=== PATIENT | female | born 1935 | race Caucasian/White ===

== ENCOUNTER 2023-12-30 10:57 | Inpatient (IN) ==
--- NOTE | 2023-12-30 11:34 | Emergency Department Note ---
Impression & Plan Cholecystitis, Right sided abdominal pain ED Provider Note Provider: Alvin Sow MD CHIEF COMPLAINT: Right flank pain, constipation HISTORY OF PRESENT ILLNESS: Patient is a 88-year-old female past medical history including hypertension presenting here today with daughter complaint of 4 months if not years she has had some right flank pain but over the last at least 2 months she developed worsening constipation issues. States she did not poop for the last week until yesterday. Had a very hard firm stool. Quite anxious and tearful. Reports that there is not been any blood but that she finally had to take some additional medications yesterday had some firm stool a small amount then some diarrhea. Denies nausea or vomiting. Has been trying to hydrate some with water. Not eating the best. Unfortunately she has been in a hotel for the last 6 months due to housing issues although they are scheduled to move back into the regular abode in several weeks. Has been thus subsisting off of mainly restaurant food and has not been eating as many salads or greens recently. Patient becomes quite anxious and when she has pain or discomfort prickly when trying to go to the bathroom she sometimes gets dizzy and hyperventilates according to daughter. No falls or syncope reported. Denies chest pain. No fevers reported. Denies urinary symptoms. No reported prior abdominal surgeries. PAST MEDICAL HISTORY: As noted above MEDICATIONS: Reviewed home medications SOCIAL HISTORY: Currently staying in a hotel with daughter until regular house is available in several weeks. PHYSICAL EXAM: GENERAL: alert and oriented on stretcher appears somewhat anxious and tearful at times. Head: normocephalic and atraumatic EYES: No injection, discharge or icterus. NECK: Trachea midline. ENT: Mucous membranes pink and moist. LUNGS: Airway patent. No retractions. Breath sounds clear HEART: Regular rate and rhythm. No chest wall tenderness ABDOMEN: Soft and non-tender, without guarding or rebound. No appreciable masses. No flank tenderness. SKIN: Acyanotic, warm, dry, without rashes EXTREMITIES: Without swelling, tenderness or deformity NEUROLOGICAL: No focal deficits. No aphasia. No facial droop or slurred speech. EK bpm. Sinus tachycardia with left intrafascicular block. No PVC or PAC. No acute ST segment elevation or depression with some T wave flattening. QTc 456. CONTINUOUS CARDIAC MONITORING: was ordered and showed a heart rate of 90s-110s bpm in sinus tachycardia to normal sinus rhythm Patient's laboratory studies and imaging reviewed. Differential includes Appendicitis, infections, diverticulitis, UTI, obstruction, mesenteric ischemia, aortic pathology, inflammatory bowel disease, renal colic, PUD, pancreatitis, biliary pathology, hernia, volvulus, constipation, as well as other pathologies. IMPRESSION/MEDICAL DECISION MAKING: Patient anxious with constipation issues and chronic right flank/abdominal pain. Nontender on exam without mass. No syncope or trauma. Seems to have discomfort when trying to have bowel movements and sometimes hyperventilates and becomes dizzy but no again syncope. Patient is tearful at times during interview. Provided reassurance. Basic blood work obtained. No chest pain or shortness of breath reported. Doubt cardiac or pulmonary etiology. Will obtain abdominal CT given her complaints to ensure no other occult abnormality such as mass, obstruction, volvulus, colitis, appendicitis, or pancreatitis are present. Do question if this is simple constipation exacerbated by change in diet due to subsisting off of restaurant food and possibly not the best hydration. Patient with CLL and white blood cell count of ~66,000 today stable compared to previous. Normal hemoglobin and platelet count. Chemistries without severe abnormality and normal renal function. Bilirubin, ALT, AST normal with alkaline phosphatase just above normal at 105. Normal lipase. Doubt hepatitis or pancreatitis. Normal troponin. Negative urinalysis without findings of blood or infection. CT abdomen pelvis with a significantly distended gallbladder with thickening and infiltration concerning for severe cholecystitis with less likelihood that could represent underlying neoplastic development. Possibly lymphadenopathy and mild dilation of the intrahepatic biliary ducts infectious versus neoplastic or reported. Discussed with general surgery team here. Patient afebrile and without leukocytosis and lower suspicion for sepsis at this time. Again no significant LFT abnormalities. Further discussion the patient states has been probably a month or 2 she has been having some right-sided abdominal pain. The general surgery team will evaluate the patient but recommend admission to medicine. Will empirically cover with antibiotics at this point given a dose of cefoxitin. Discussed with the hospitalist team. DIAGNOSIS: Cholecystitisright abdominal pain, constipation DISPOSITION: General surgery team and hospitalist will evaluate Past Med/Surg History Problem List (Updated 12/30/23 @ 14:49 by Mulu Butler PA-C) Hypothyroidism GERD (gastroesophageal reflux disease) HLD (hyperlipidemia) HTN (hypertension) Right sided abdominal pain (Acute) Cholecystitis (Acute) Medical History (Updated 12/30/23 @ 14:49 by Mulu Butler PA-C) History of right breast cancer Brain TIA Speech abnormality Surgical History (Updated 12/30/23 @ 14:49 by Mulu Butler PA-C) Hx of lumpectomy Hx of right mastectomy Social History Smoking Status: Never smoker Preferred Language: Telugu Feels Safe at Home: Yes Allergies Allergies Allergy/AdvReac Type Severity Reaction Status Date / Time meperidine [From Demerol] Allergy Unknown PER [facility] Verified 05/22/23 16:27 Penicillins Allergy Unknown HAPPENED A Verified 05/22/23 16:27 LONG TIME AGO--CAN'T REMEMBER Tetracyclines Allergy Unknown PER [facility] Verified 05/22/23 16:27 Home Meds Home Medications Medication Instructions Recorded Confirmed cholecalciferol (vitamin D3) 50 25 mcg PO DAILY 12/08/22 12/30/23 mcg (2,000 unit) capsule (Vitamin D3) glucosamine sulfate 500 mg tablet 500 mg PO BID 12/08/22 12/30/23 (Glucosamine) hydrochlorothiazide 12.5 mg capsule 12.5 mg PO QAM 12/08/22 12/30/23 loratadine 10 mg tablet (Claritin) 10 mg PO DAILY 12/08/22 12/30/23 losartan 25 mg tablet 25 mg PO QAM 12/08/22 12/30/23 pantoprazole 40 mg tablet,delayed 40 mg PO QAM 12/08/22 12/30/23 release psyllium husk 3.4 gram/5.4 gram 1 tbsp PO DAILY 12/08/22 12/30/23 oral powder (Metamucil) simvastatin 20 mg tablet 20 mg PO QAM 12/08/22 12/30/23 vitamin E 268 mg (400 unit) capsule 268 mg PO DAILY 12/08/22 12/30/23 montelukast 10 mg tablet 10 mg PO QAM 05/22/23 12/30/23 cetirizine 10 mg capsule 10 mg PO DAILY 12/30/23 12/30/23 clopidogrel 75 mg tablet 75 mg PO DAILY 12/30/23 12/30/23 diclofenac sodium 1 % topical gel 2 g topical BID 12/30/23 12/30/23 hydrocodone 5 mg-acetaminophen 325 1 tab PO Q6H PRN Pain (Scale Score 12/30/23 12/30/23 mg tablet 4-6) levothyroxine 75 mcg tablet 75 mcg PO DAILY 12/30/23 12/30/23 turmeric root extract 500 mg 500 mg PO DAILY 12/30/23 12/30/23 capsule Results & Data (ED) Vital Signs Vital Signs - 24 hr 12/30/23 11:07 12/30/23 11:37 12/30/23 13:00 Temperature 36.4 C L Temperature Source Temporal Artery Scan Pulse Rate 116 H Pulse Rate [Right Brachial] 96 H Pulse Rhythm Regular Pulse Rhythm [Right Brachial] Regular Pulse Strength Normal Pulse Strength [Right Brachial] Normal Respiratory Rate 22 18 Respiratory Effort / Characteristics Non-Labored Spontaneous Non-Labored Respiratory Depth Normal Normal Respiratory Pattern Regular Regular Blood Pressure 117/83 Blood Pressure [Right Arm] 135/83 Blood Pressure Mean 94 Blood Pressure Mean [Right Arm] 100 Blood Pressure Position Sitting Blood Pressure Position [Right Arm] Lying Pulse Oximetry 96 95 96 Oxygen Delivery Method Room Air Room Air Room Air Sepsis Recent Fever Within 48 Hours No Sepsis New/Unexplained Change in Mental Status No Sepsis Action Taken by Nursing No Action Required 12/30/23 13:29 Temperature Temperature Source Pulse Rate 94 H Pulse Rate [Right Brachial] Pulse Rhythm Pulse Rhythm [Right Brachial] Pulse Strength Pulse Strength [Right Brachial] Respiratory Rate Respiratory Effort / Characteristics Respiratory Depth Respiratory Pattern Blood Pressure Blood Pressure [Right Arm] Blood Pressure Mean Blood Pressure Mean [Right Arm] Blood Pressure Position Blood Pressure Position [Right Arm] Pulse Oximetry Oxygen Delivery Method Sepsis Recent Fever Within 48 Hours Sepsis New/Unexplained Change in Mental Status Sepsis Action Taken by Nursing Laboratory Data 12/30/23 11:25 12/30/23 11:25 Lab Results 12/30/23 12/30/23 Range/Units 11:25 12:31 WBC 66.46 H* (4.8-10.8) K/ul RBC 5.36 (4.20-5.40) M/uL Hgb 13.3 (12.0-16.0) g/dl Hct 41.4 (37.0-47.0) % MCV 77.2 L (80.0-100.0) fL MCH 24.8 L (25.0-34.0) pg MCHC 32.1 (32.0-36.0) g/dL RDW Std Deviation 44.1 (36.4-46.3) fL RDW Coeff of Dre 15.9 H (11.5-14.5) % Plt Count 287 (130-400) K/uL MPV 10.9 (9.4-12.4) fL Immature Gran % (Auto) 0.7 % Neut % (Auto) 18.8 % Lymph % (Auto) 77.4 % [place] % (Auto) 2.7 % Eos % (Auto) 0.2 % Baso % (Auto) 0.2 % Neut # (Auto) 12.53 H (1.40-6.50) K/uL Lymph # (Auto) 51.45 H (1.20-3.40) K/uL [place] # (Auto) 1.79 H (0.11-0.59) K/uL Eos # (Auto) 0.11 (0.00-0.50) K/uL Baso # (Auto) 0.10 (0.00-0.20) K/uL Immature Gran # (Auto) 0.48 H (0.01-0.20) K/uL Polychromasia 1+ PT 10.8 (9.0-12.0) Seconds INR 1.0 (0.9-1.1) Sodium 135 L (136-145) mmol/L Potassium 3.9 (3.5-5.1) mmol/L Chloride 103 (98-107) mmol/L Carbon Dioxide 20 L (21-32) mmol/L Anion Gap 12 H (3-11) BUN 19 (6-23) mg/dl Creatinine 0.84 (0.6-1.2) mg/dl Est Cr Clr Drug Dosing 48.8 ml/min eGFR 66.80 BUN/Creatinine Ratio 22.6 H (10-20) Glucose 164 H (70-99(Fasting)) mg/dl Calcium 9.2 (8.6-10.3) mg/dl Total Bilirubin 0.8 (0.2-1.0) mg/dl AST 22 (13-39) U/L ALT 18 (7-52) U/L Alkaline Phosphatase 105 H (34-104) U/L Troponin I High Sens 4.4 (0-14) pg/ml Total Protein 8.0 (6.0-8.3) gm/dl Albumin 4.1 (3.4-5.0) gm/dl Globulin 3.9 (2.5-4.0) gm/dl Albumin/Globulin Ratio 1.1 (0.9-2) Lipase 18 (11-82) U/L Urine Color Yellow Urine Appearance Clear (Clear) Urine pH 5.5 (4.5-7.5) Ur Specific [place] 1.013 (1.000-1.030) Urine Protein Negative (Negative) Urine Glucose (UA) Negative (Negative) Urine Ketones Trace H (Negative) Urine Blood Negative (Negative) Urine Nitrite Negative (Negative) Urine Bilirubin Negative (Negative) Urine Urobilinogen Negative (Negative) Ur Leukocyte Esterase Negative (Negative) Administered Medications Discontinued Medications Sodium Chloride (Nss) 500 mls @ 999 mls/hr IV .Q31M ONE Stop: 12/30/23 12:02 Last Infusion: 12/30/23 12:35 Dose: Infused Documented By: Admin: 12/30/23 11:53 Dose: 999 mls/hr Documented By: MICA Cefoxitin Sodium (Mefoxin) 2,000 mg in 60 mls @ 100 mls/hr IV NOW STA Stop: 12/30/23 14:43 Last Infusion: 12/30/23 15:42 Dose: Infused Documented By: Admin: 12/30/23 15:05 Dose: 100 mls/hr Documented By: YOVANI Ioversol (Optiray 320 100ml) 94 ml IV ONCE ONE Stop: 12/30/23 12:14 Last Admin: 12/30/23 12:13 Dose: 94 ml Documented By: FRANK Imaging Data Radiologist's Impression: Abdomen/Pelvis CT 12/30/23 11:19 CT OF THE ABDOMEN AND PELVIS WITH CONTRAST CLINICAL HISTORY: Right flank pain. COMPARISON STUDY: None. TECHNIQUE: Following IV administration of 94 mL of Optiray, axial images of the abdomen and pelvis were obtained from the lung bases to the proximal femurs. Images were reviewed in the axial, sagittal, and coronal planes. IV contrast was administered without complication. Automated exposure control was utilized for the study. A dose lowering technique was utilized adhering to the principles of ALARA. CT DOSE: 1138.02 mGy.cm FINDINGS: No pneumatosis, free air or portal venous gas is present. The heart is enlarged. There is slight dilatation of intrahepatic bile ducts. There is prominent wall enhancement of the central bile ducts. There is apparent mass effect upon the proximal common bile duct at the level of the pascale hepatis. There are mildly enlarged pascale hepatis lymph nodes which appear hypodense. Index node on image 111 measures 2.6 x 1.6 cm. The gallbladder is mildly distended with irregular gallbladder wall thickening with moderate pericholecystic infiltration. There is subtle hypodensity within the adjacent portion of the liver. There is no pancreatic ductal dilatation. Spleen is mildly enlarged. The adrenal glands and kidneys are unremarkable. There is no hydronephrosis. There is no evidence for a bowel obstruction. Extensive sigmoid diverticulosis is present. There is no evidence for acute diverticulitis. Prominence of the posterior aspect of the uterine fundus is noted. This could be due to a fibroid. A small umbilical hernia contains a small amount of fluid and a few nodular densities. IMPRESSION: 1. Distended gallbladder with gallbladder wall thickening and pericholecystic infiltration. The findings represent moderate to severe acute cholecystitis. Given gallbladder wall irregularity, developing gangrenous cholecystitis cannot be excluded. Subtle hypointensity within the adjacent liver. This probably reflects edema in the setting of cholecystitis. However, an underlying neoplastic etiology is also within the differential. 2. Mild dilatation of the intrahepatic bile ducts with mass effect upon the common bile duct within the pascale hepatis, possibly due to lymphadenopathy. Prominent wall enhancement of the central bile ducts. Again, the findings could be infectious and related to cholecystitis or represent cholangitis. However, a neoplastic etiology cannot be excluded. The lymphadenopathy is likely reactive although could be neoplastic. 3. Extensive colonic diverticulosis. No evidence for acute diverticulitis. ACT 112: Negative or not required by law. Electronically signed by: Alex Nails M.D. 12/30/2023 1:22 PM Liver Ultrasound 12/30/23 14:01 US liver CLINICAL HISTORY: Cholecystitis. COMPARISON STUDY: CT of the abdomen and pelvis performed earlier today. FINDINGS: No hepatic lesions are identified. There is slight prominence of intrahepatic bile ducts. The caliber of the common bile duct is normal, measuring 5 mm. Numerous gallstones within the gallbladder are present. The gallbladder is distended. There is moderate gallbladder wall thickening. No sonographic Ruiz sign was reported. The pancreatic body is normal. Head and tail are obscured. There are several mildly enlarged pascale hepatis/peripancreatic lymph nodes that measure up to 2.9 x 2.5 x 1.1 cm. There is no right hydronephrosis. IMPRESSION: 1. Distended gallbladder which contains numerous stones. Moderate gallbladder wall thickening and trace pericholecystic fluid. No sonographic Ruiz sign. When correlating with CT, the findings suggest acute cholecystitis. 2. Slight prominence of intrahepatic bile ducts. Normal caliber common bile duct. 3. Mildly enlarged pascale hepatis/peripancreatic lymph nodes. These are likely reactive although a neoplastic etiology could appear similar. ACT 112: Negative or not required by law. Electronically signed by: Alex Nails M.D. 12/30/2023 2:47 PM Discharge Plan Visit Data Chief Complaint: Abdominal Pain Stated Complaint: SEVERE PAIN R FLANK FOR MORE THAN A WEEK ED Provider: Alvin Sow Discharge Problem: Cholecystitis, Right sided abdominal pain Patient Disposition: Being Evaluated by Surgeon
[2023-12-30 11:45] LABS: Hematocrit (blood only) 41.4 % (37.0-47.0); Hemoglobin 13.3 g/dl (12.0-16.0); Mean Corpuscular Hemoglobin 24.8 pg (25.0-34.0); Mean Corpuscular Hgb Conc 32.1 g/dL (32.0-36.0); Mean Corpuscular Volume 77.2 fL (80.0-100.0); Mean Platelet Volume 10.9 fL (9.4-12.4); Platelet Count 287 K/uL (130-400); RDW Coefficient of Variation 15.9 % (11.5-14.5); RDW Standard Deviation 44.1 fL (36.4-46.3); Red Blood Count 5.36 M/uL (4.20-5.40); White Blood Count 66.46 K/ul (4.8-10.8)
[2023-12-30] MEDS: SODIUM CHLORIDE 0.9% 500 ML IV ONE (11:53)
[2023-12-30 11:57] LABS: Albumin Globulin Ratio 1.1 (0.9-2); Albumin Level 4.1 gm/dl (3.4-5.0); BUN Creatinine Ratio 22.6 (10-20); Bilirubin,Total 0.8 mg/dl (0.2-1.0); Calcium 9.2 mg/dl (8.6-10.3); Creatinine Clr Calc Pharmacy 48.8 ml/min; Globulin 3.9 gm/dl (2.5-4.0); Potassium 3.9 mmol/L (3.5-5.1)
[2023-12-30 12:04] LABS: Troponin I High Sensitivity 4.4 pg/ml (0-14)
[2023-12-30 12:07] LABS: Prothrombin Time 10.8 Seconds (9.0-12.0)
[2023-12-30] MEDS: OPTIRAY 320 100ml IV ONE (12:13)
[2023-12-30 12:16] LABS: Basophils % (auto) 0.2 %; Eosinophils # (auto) 0.11 K/uL (0.00-0.50); Eosinophils % (auto) 0.2 %; Immature Granulocytes # (auto) 0.48 K/uL (0.01-0.20); Immature Granulocytes % (auto) 0.7 %; Lymphocytes # (auto) 51.45 K/uL (1.20-3.40); Lymphocytes % (auto) 77.4 %; Monocytes # (auto) 1.79 K/uL (0.11-0.59); Monocytes % (auto) 2.7 %; Neutrophils # (auto) 12.53 K/uL (1.40-6.50); Neutrophils % (auto) 18.8 %; Polychromasia 1+
[2023-12-30 12:43] LABS: Appearance Urine Clear (Clear); Bilirubin Urine Negative (Negative); Blood Urine Negative (Negative); Color Urine Yellow; Glucose Urine UA Negative (Negative); Ketones Urine Trace (Negative); Leukocyte Esterase Urine Negative (Negative); Nitrite Urine Negative (Negative); Protein Urine Negative (Negative); Specific Gravity Urine 1.013 (1.000-1.030); Urobilinogen Urine Negative (Negative); pH Urine 5.5 (4.5-7.5)
--- NOTE | 2023-12-30 13:24 | CT Scan Report ---
CT OF THE ABDOMEN AND PELVIS WITH CONTRAST CLINICAL HISTORY: Right flank pain. COMPARISON STUDY: None. TECHNIQUE: Following IV administration of 94 mL of Optiray, axial images of the abdomen and pelvis we re obtained from the lung bases to the proximal femurs. Images were reviewed in the axial, sagittal, and coronal planes. IV contrast was administered without complication. Automated exposure control wa s utilized for the study. A dose lowering technique was utilized adhering to the principles of ALARA . CT DOSE: 1138.02 mGy.cm FINDINGS: No pneumatosis, free air or portal venous gas is present. The heart is enlarged. There is s light dilatation of intrahepatic bile ducts. There is prominent wall enhancement of the central bile ducts. There is apparent mass effect upon the proximal common bile duct at the level of the pascale he patis. There are mildly enlarged pascale hepatis lymph nodes which appear hypodense. Index node on imag e 111 measures 2.6 x 1.6 cm. The gallbladder is mildly distended with irregular gallbladder wall thic kening with moderate pericholecystic infiltration. There is subtle hypodensity within the adjacent po rtion of the liver. There is no pancreatic ductal dilatation. Spleen is mildly enlarged. The adrenal glands and kidneys are unremarkable. There is no hydronephrosis. There is no evidence for a bowel obs truction. Extensive sigmoid diverticulosis is present. There is no evidence for acute diverticulitis. Prominence of the posterior aspect of the uterine fundus is noted. This could be due to a fibroid. A small umbilical hernia contains a small amount of fluid and a few nodular densities. IMPRESSION: 1. Distended gallbladder with gallbladder wall thickening and pericholecystic infiltration. The findi ngs represent moderate to severe acute cholecystitis. Given gallbladder wall irregularity, developing gangrenous cholecystitis cannot be excluded. Subtle hypointensity within the adjacent liver. This pr obably reflects edema in the setting of cholecystitis. However, an underlying neoplastic etiology is also within the differential. 2. Mild dilatation of the intrahepatic bile ducts with mass effect upon the common bile duct within t he pascale hepatis, possibly due to lymphadenopathy. Prominent wall enhancement of the central bile lucia ts. Again, the findings could be infectious and related to cholecystitis or represent cholangitis. Ho wever, a neoplastic etiology cannot be excluded. The lymphadenopathy is likely reactive although coul d be neoplastic. 3. Extensive colonic diverticulosis. No evidence for acute diverticulitis. ACT 112: Negative or not required by law. Electronically signed by: Alex Nails M.D. 12/30/2023 1:22 PM
--- NOTE | 2023-12-30 14:04 | History & Physical Report ---
Date of Service December 30, 2023 Assessment & Plan (1) Cholecystitis: (2) HTN (hypertension): (3) HLD (hyperlipidemia): (4) GERD (gastroesophageal reflux disease): (5) Hypothyroidism: (6) History of right breast cancer: Plan Acute cholecystitis R flank Pain Constipation - Admit to med surg with tele - Surgery consulted for possible cholecystectomy- no plans for surgical intervention today. May require cholecystectomy vs percutaneous maria g tube. Surgery initially requested GI consultation but now plans for MRCP instead. Will hold plavix, last dose was this morning. Continue NPO for now incase plans for surgery tomorrow. Cont IV fluids for now. - Started on cefoxitin IV in the ER, will continue - RUQ US reviewed showing distended gallbladder which contains multiple gallbladder stones. Moderate gallbladder wall thickening and trace per icholecystic fluid. - LFTs are stable, follow with am labs History of B cell CLL Right breast cancer - Follows with heme-onc as outpatient routinely, Dr. 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 Recurrence of R breast cancer in 2010, now s/p R mastectomy, completed 5 years of anastrozole in 2016 - WBC baseline ~ 60 K as per outpatient epic review from May 2023, today WBC 66 K, monitor Hypothyroidism -TSH 4.53 on 12/26 -Continue levothyroxine Hx of TIA - Pt follows with neuro , Dr. Fountain, currently on plavix - Holding as above d/t possible surgery, resume as able. HTN HLD - Chronic, stable, Cont home meds: losartan 25 mg daily, HCTZ 12.5 mg daily, simvastatin 20 mg daily Spinal stenosis Ambulatory dysfunction - PT/OT consults DVT ppx: teds, scds Lines: PIV x 2 FEN/GI: N.p.o. CODE: Full code Dispo: From home, likely to remain in the hospital x 1-2 days A total of 77 minutes were spent with greater than 50% of that time face to face with the patient, personally reviewing all current laboratories, imaging studies, past medication reconciliation, outpatient chart review, and discussion with specialists to collaborate care for the patient with attending. Please see attending documentation for corrections and/or additions. History of Present Illness Chief Complaint: R flank Pain Primary Care Provider: Triston Bragg MD This is a 88-year-old female with PMHx of CLL, history of right breast cancer, hypothyroidism, HTN, HLD, GERD, spinal stenosis, ambulatory dysfunction and anxiety who presents to the hospital with onset of right-sided flank pain on and off over the past 1 to 2 months. She complains of recent constipation and that is why she initially presented. Patient has been out of her house and living in a hotel for the past few months, not eating normal types of food, and came into the ER with worsening abdominal/right-sided flank pain. Last time she ate was coffee and small muffin this morning around 8 AM. Pt denies fever, chills, worsening abdominal pain, distension, admits to burping often. She has pain in the RUQ with pressure but does not bother her while is just sitting in bed. Her daughter is with her at bedside and supports the history. CT abdomen pelvis is reviewed showing a distended gallbladder with gallbladder wall thickening and pericholecystic infiltration. Representing moderate to severe acute cholecystitis. Given gallbladder wall irregularity, developing gangrenous cholecystitis cannot be excluded. Subtle hypointensity within the adjacent liver, probably reflecting edema, however underlying neoplastic etiology is also within the deaf. Mild dilation of intrahepatic bile duct with mass effect upon the CBD within the pascale hepatitis. Prominent wall enhancement of central bile ducts. Extensive colonic diverticulosis, no acute diverticulitis. WBC of 66.46 with a left shift with neutrophil count 1.53, her baseline WBC is around 60K with history of CLL. Allergies Allergy/AdvReac Type Severity Reaction Status Date / Time meperidine [From Demerol] Allergy Unknown PER [facility] Verified 05/22/23 16:27 Penicillins Allergy Unknown HAPPENED A Verified 05/22/23 16:27 LONG TIME AGO--CAN'T REMEMBER Tetracyclines Allergy Unknown PER [facility] Verified 05/22/23 16:27 Home Medications Medication Instructions Recorded Confirmed Type cholecalciferol (vitamin D3) 50 25 mcg PO DAILY 12/08/22 12/30/23 History mcg (2,000 unit) capsule (Vitamin D3) glucosamine sulfate 500 mg tablet 500 mg PO BID 12/08/22 12/30/23 History (Glucosamine) hydrochlorothiazide 12.5 mg capsule 12.5 mg PO QAM 12/08/22 12/30/23 History loratadine 10 mg tablet (Claritin) 10 mg PO DAILY 12/08/22 12/30/23 History losartan 25 mg tablet 25 mg PO QAM 12/08/22 12/30/23 History pantoprazole 40 mg tablet,delayed 40 mg PO QAM 12/08/22 12/30/23 History release psyllium husk 3.4 gram/5.4 gram 1 tbsp PO DAILY 12/08/22 12/30/23 History oral powder (Metamucil) simvastatin 20 mg tablet 20 mg PO QAM 12/08/22 12/30/23 History vitamin E 268 mg (400 unit) capsule 268 mg PO DAILY 12/08/22 12/30/23 History montelukast 10 mg tablet 10 mg PO QAM 05/22/23 12/30/23 History cetirizine 10 mg capsule 10 mg PO DAILY 12/30/23 12/30/23 History clopidogrel 75 mg tablet 75 mg PO DAILY 12/30/23 12/30/23 History diclofenac sodium 1 % topical gel 2 g topical BID 12/30/23 12/30/23 History hydrocodone 5 mg-acetaminophen 325 1 tab PO Q6H PRN Pain (Scale Score 12/30/23 12/30/23 History mg tablet 4-6) levothyroxine 75 mcg tablet 75 mcg PO DAILY 12/30/23 12/30/23 History turmeric root extract 500 mg 500 mg PO DAILY 12/30/23 12/30/23 History capsule Past Med/Surg History Problem List (Updated 12/30/23 @ 14:49 by Mulu Butler PA-C) Hypothyroidism GERD (gastroesophageal reflux disease) HLD (hyperlipidemia) HTN (hypertension) Right sided abdominal pain (Acute) Cholecystitis (Acute) Medical History (Updated 12/30/23 @ 14:49 by Mulu Butler PA-C) History of right breast cancer Brain TIA Speech abnormality Surgical History (Updated 12/30/23 @ 14:49 by Mulu Butler PA-C) Hx of lumpectomy Hx of right mastectomy Social History Smoking Status: Never smoker Preferred Language: Bangladeshi Feels Safe at Home: Yes Review of Systems Review of Systems: Constitutional: No fever, sweats or chills Eyes: No diplopia, no worsening or blurred vision ENT: normal hearing, no trouble swallowing Respiratory: No cough, sputum, dyspnea at rest or on exertion Cardiovascular: No chest pain, tightness or palpitations Abdomen: + RUQ pain, no nausea, vomiting, diarrhea, + as per HPI with constipation Musculoskeletal: No joint pain, calf pain, swelling Neurologic: No weakness, numbness/tingling, or balance problems Psychiatric: No anxiety or depression Skin: No rash or itch Physical Exam Physical Exam: Please refer to physician addendum for PE. Results & Data Results & Data Vital Signs (Past 12 Hours) Vital Signs Temp Pulse Pulse Resp BP BP Pulse Ox 12/30/23 13:29 94 H 12/30/23 13:00 96 H 18 135/83 96 12/30/23 11:37 95 12/30/23 11:07 36.4 C L 116 H 22 117/83 96 O2 Del Method 12/30/23 13:29 12/30/23 13:00 Room Air 12/30/23 11:37 Room Air 12/30/23 11:07 Room Air Laboratory Results 12/30/23 12/30/23 12:31 11:25 WBC 66.46 H* RBC 5.36 Hgb 13.3 Hct 41.4 MCV 77.2 L MCH 24.8 L MCHC 32.1 RDW Std Deviation 44.1 RDW Coeff of Dre 15.9 H Plt Count 287 MPV 10.9 Immature Gran % (Auto) 0.7 Neut % (Auto) 18.8 Lymph % (Auto) 77.4 [place] % (Auto) 2.7 Eos % (Auto) 0.2 Baso % (Auto) 0.2 Neut # (Auto) 12.53 H Lymph # (Auto) 51.45 H Archule[place] # (Auto) 1.79 H Eos # (Auto) 0.11 Baso # (Auto) 0.10 Immature Gran # (Auto) 0.48 H Polychromasia 1+ PT 10.8 INR 1.0 Sodium 135 L Potassium 3.9 Chloride 103 Carbon Dioxide 20 L Anion Gap 12 H BUN 19 Creatinine 0.84 Est Cr Clr Drug Dosing 48.8 eGFR 66.80 BUN/Creatinine Ratio 22.6 H Glucose 164 H Calcium 9.2 Total Bilirubin 0.8 AST 22 ALT 18 Alkaline Phosphatase 105 H Troponin I High Sens 4.4 Total Protein 8.0 Albumin 4.1 Globulin 3.9 Albumin/Globulin Ratio 1.1 Lipase 18 Urine Color Yellow Urine Appearance Clear Urine pH 5.5 Ur Specific [place] 1.013 Urine Protein Negative Urine Glucose (UA) Negative Urine Ketones Trace H Urine Blood Negative Urine Nitrite Negative Urine Bilirubin Negative Urine Urobilinogen Negative Ur Leukocyte Esterase Negative Diagnostic Findings Abdomen/Pelvis CT 12/30/23 11:19 CT OF THE ABDOMEN AND PELVIS WITH CONTRAST CLINICAL HISTORY: Right flank pain. COMPARISON STUDY: None. TECHNIQUE: Following IV administration of 94 mL of Optiray, axial images of the abdomen and pelvis were obtained from the lung bases to the proximal femurs. Images were reviewed in the axial, sagittal, and coronal planes. IV contrast was administered without complication. Automated exposure control was utilized for the study. A dose lowering technique was utilized adhering to the principles of ALARA. CT DOSE: 1138.02 mGy.cm FINDINGS: No pneumatosis, free air or portal venous gas is present. The heart is enlarged. There is slight dilatation of intrahepatic bile ducts. There is prominent wall enhancement of the central bile ducts. There is apparent mass effect upon the proximal common bile duct at the level of the pascale hepatis. There are mildly enlarged pascale hepatis lymph nodes which appear hypodense. Index node on image 111 measures 2.6 x 1.6 cm. The gallbladder is mildly distended with irregular gallbladder wall thickening with moderate pericholecystic infiltration. There is subtle hypodensity within the adjacent portion of the liver. There is no pancreatic ductal dilatation. Spleen is mildly enlarged. The adrenal glands and kidneys are unremarkable. There is no hydronephrosis. There is no evidence for a bowel obstruction. Extensive sigmoid diverticulosis is present. There is no evidence for acute diverticulitis. Prominence of the posterior aspect of the uterine fundus is noted. This could be due to a fibroid. A small umbilical hernia contains a small amount of fluid and a few nodular densities. IMPRESSION: 1. Distended gallbladder with gallbladder wall thickening and pericholecystic infiltration. The findings represent moderate to severe acute cholecystitis. Given gallbladder wall irregularity, developing gangrenous cholecystitis cannot be excluded. Subtle hypointensity within the adjacent liver. This probably reflects edema in the setting of cholecystitis. However, an underlying neoplastic etiology is also within the differential. 2. Mild dilatation of the intrahepatic bile ducts with mass effect upon the common bile duct within the pascale hepatis, possibly due to lymphadenopathy. Prominent wall enhancement of the central bile ducts. Again, the findings could be infectious and related to cholecystitis or represent cholangitis. However, a neoplastic etiology cannot be excluded. The lymphadenopathy is likely reactive although could be neoplastic. 3. Extensive colonic diverticulosis. No evidence for acute diverticulitis. ACT 112: Negative or not required by law. Electronically signed by: Alex Nails M.D. 12/30/2023 1:22 PM Code Status & VTE Plan Code Status Full code - discussed with pt at bedside Supervising Physician Co-Signing Physician Notes 12/30/2023 the patient was seen and examined in emergency room in presence of the daughter She has been complaining of right-sided upper abdominal pain for few weeks Pain seems to be colicky in nature and sometimes is aggravated by food No nausea and/or vomiting and does not have any fever and no chills On examination Lying in bed without any acute distress Hemodynamically stable Chestclear to auscultate bilaterally HeartS1-S2, regular Abdomensoft, tender right upper quadrant with rebound tenderness and positive Ruiz sign Extremitiesno edema Her admission labs, EKG and imaging studies reviewed Has distended gallbladder with gallstone cholecystitis Also has stable CLL Started on intravenous cefoxitin and surgery has been consulted Will need GI evaluation as well Agree with assessment plan as outlined above by Mulu Butler PA-C and take the full responsibility of the care DR Bienvenido Houston
--- NOTE | 2023-12-30 14:14 | Surgery Consultation ---
Date of Consultation December 30, 2023 Assessment & Plan (1) Cholecystitis: Patient with c/o abdominal pain belching, and constipation. She reports her abdominal pain is RLQ. On exam she is resting in the litter, VSS, abdomen is non distended, TTP RUQ, soft. A CT scan was obtained and showing concerns for a D istended gallbladder with gallbladder wall thickening and pericholecystic infiltration. The findings represent moderate to severe acute cholecystitis with the possibility of developing gangrenous cholecystitis. Subtle hypointensity within the adjacent liver. This probably reflects edema in the setting of cholecystitis. However, an underlying neoplastic etiology is also within the differential. Mild dilatation of the intrahepatic bile ducts with mass effect upon the common bile duct within the pascale hepatis, possibly due to lymphadenopathy. Prominent wall enhancement of the central bile ducts. Again, the findings could be infectious and related to cholecystitis or represent cholangitis. However, a neoplastic etiology cannot be excluded. The lymphadenopathy is likely reactive although could be neoplastic. WBC 66 (has CLL), LFT non elevated Recommending admission to medicine Hold anticoagulation Consult GI for further recommendations on CT reading and mass effect on CBD, dilatation of intrahepatic bile ducts, IV Fluids for hydration, IV antiemetics and analgesics prn, IV antibiotics started in the ER ordered RUQ u/s discussed with patient and daughter the possibility of cholecystectomy vs perc maria g tube will await U/S results no plan for surgical intervention at this time. discussed pt with on-call surgeon Dr. Lewis Supervising Physician Co-Signing Physician Notes Patient and MRCP at time of my visit, had lengthy discussion with the daughter. Presented with nausea and abdominal pain, CT showed significant inflammation of the gallbladder along with some questionable inflammation of the bile ducts and some lymphadenopathy in the pascale hepatis. Ultrasound showed multiple gallstones and cholecystitis. The MRCP is pending. After review of the patient's chart, she has CLL and is on Plavix. Given her comorbidities, would hold off on surgical intervention. Recommend treating with antibiotics. If the MRCP is negative then she may have clear liquids tonight. Would plan for percutaneous cholecystostomy tube in the next few days. If unable to be performed then would consider transfer for [employer] stent. Surgery will follow. History of Present Illness Reason for Consultation: acute cholecystitis Requesting Physician: Dr. Sow History of Present Illness Patient is a pleasant 88 yo female with PMH of CLL , TIA, hypothyroidism, HLD, that presented to the [facility] ER accompanied with her daughter with c/o abdominal pain and belching, constipation. Abdominal pain has been present for the last few months intermittent in nature. The patient reports that her abdominal pain is in her RLQ and is not associated with food intake, she reports that she eats very little and avoids fatty greasy foods. She denies N/V, f/c , Cp, has bowel movements every other day or every two days but needs assist with OTC stool softeners. She takes Plavix for prior TIA and took it this AM, No prior abdominal surgeries. Allergies Allergy/AdvReac Type Severity Reaction Status Date / Time meperidine [From Demerol] Allergy Unknown PER [facility] Verified 05/22/23 16:27 Penicillins Allergy Unknown HAPPENED A Verified 05/22/23 16:27 LONG TIME AGO--CAN'T REMEMBER Tetracyclines Allergy Unknown PER [facility] Verified 05/22/23 16:27 Home Medications Medication Instructions Recorded Confirmed Type cholecalciferol (vitamin D3) 50 25 mcg PO DAILY 12/08/22 12/30/23 History mcg (2,000 unit) capsule (Vitamin D3) glucosamine sulfate 500 mg tablet 500 mg PO BID 12/08/22 12/30/23 History (Glucosamine) hydrochlorothiazide 12.5 mg capsule 12.5 mg PO QAM 12/08/22 12/30/23 History loratadine 10 mg tablet (Claritin) 10 mg PO DAILY 12/08/22 12/30/23 History losartan 25 mg tablet 25 mg PO QAM 12/08/22 12/30/23 History pantoprazole 40 mg tablet,delayed 40 mg PO QAM 12/08/22 12/30/23 History release psyllium husk 3.4 gram/5.4 gram 1 tbsp PO DAILY 12/08/22 12/30/23 History oral powder (Metamucil) simvastatin 20 mg tablet 20 mg PO QAM 12/08/22 12/30/23 History vitamin E 268 mg (400 unit) capsule 268 mg PO DAILY 12/08/22 12/30/23 History montelukast 10 mg tablet 10 mg PO QAM 05/22/23 12/30/23 History cetirizine 10 mg capsule 10 mg PO DAILY 12/30/23 12/30/23 History clopidogrel 75 mg tablet 75 mg PO DAILY 12/30/23 12/30/23 History diclofenac sodium 1 % topical gel 2 g topical BID 12/30/23 12/30/23 History hydrocodone 5 mg-acetaminophen 325 1 tab PO Q6H PRN Pain (Scale Score 12/30/23 12/30/23 History mg tablet 4-6) levothyroxine 75 mcg tablet 75 mcg PO DAILY 12/30/23 12/30/23 History turmeric root extract 500 mg 500 mg PO DAILY 12/30/23 12/30/23 History capsule Patient History Medical History (Updated 12/30/23 @ 14:49 by Mulu Butler PA-C) History of right breast cancer Brain TIA Speech abnormality Surgical History (Updated 12/30/23 @ 14:49 by Mulu Butler PA-C) Hx of lumpectomy Hx of right mastectomy Social History Smoking Status: Never smoker Preferred Language: Macedonian Feels Safe at Home: Yes Review of Systems Constitutional: no fever and no chills Respiratory: no cough Cardiovascular: no chest pain Gastrointestinal: + abdominal pain, + belching and + const ipation; no heartburn, no nausea and no vomiting Integumentary: no rash Psychiatric: no confusion Physical Exam Constitutional: cooperative and comfortable; no acute distress Respiratory: normal respiratory effort; no respiratory distress Cardiovascular: Rate/Rhythm: regular rate Gastrointestinal (Abdomen): Inspection/Auscultation: abdomen not distended Percussion/Palpation: + abdomen tender, + guarding and abdomen soft Skin: no rashes, warm and dry Psychiatric: Orientation: alert and oriented x 3 Results & Data Vital Signs (Past 12 Hours) Vital Signs Temp Pulse Pulse Resp BP BP Pulse Ox 12/30/23 13:29 94 H 12/30/23 13:00 96 H 18 135/83 96 12/30/23 11:37 95 12/30/23 11:07 97.5 F L 116 H 22 117/83 96 O2 Del Method 12/30/23 13:29 12/30/23 13:00 Room Air 12/30/23 11:37 Room Air 12/30/23 11:07 Room Air Diagnostic Findings [facility] [place] [phone] CT Scan Report Patient: TANVI HASKINS Admit Date: 12/30/23 MR#: [id number] Address1: [address] Silva ID:[id number] Address2: Date: 1935 [facility] Zip: [place] [id number] Age: 88 Location: ED Sex: F Room/Bed: Att Phy: Diagnosis: SEVERE PAIN R FLANK FOR MORE THAN A WEEK Rani Phy: Triston Bragg MD Service Date: 12/30/23 [facility] Phy: Interpreting Phy: Alex Nails MDAdmit Phy: Ordering Phy: Alvin Sow M.D. cc: ~ CT OF THE ABDOMEN AND PELVIS WITH CONTRAST CLINICAL HISTORY: Right flank pain. COMPARISON STUDY: None. TECHNIQUE: Following IV administration of 94 mL of Optiray, axial images of the abdomen and pelvis were obtained from the lung bases to the proximal femurs. Images were reviewed in the axial, sagittal, and coronal planes. IV contrast was administered without complication. Automated exposure control was utilized for the study. A dose lowering technique was utilized adhering to the principles of ALARA. CT DOSE: 1138.02 mGy.cm FINDINGS: No pneumatosis, free air or portal venous gas is present. The heart is enlarged. There is slight dilatation of intrahepatic bile ducts. There is prominent wall enhancement of the central bile ducts. There is apparent mass effect upon the proximal common bile duct at the level of the pascale hepatis. There are mildly enlarged pascale hepatis lymph nodes which appear hypodense. Index node on image 111 measures 2.6 x 1.6 cm. The gallbladder is mildly distended with irregular gallbladder wall thickening with moderate pericholecys tic infiltration. There is subtle hypodensity within the adjacent portion of the liver. There is no pancreatic ductal dilatation. Spleen is mildly enlarged. The adrenal glands and kidneys are unremarkable. There is no hydronephrosis. There is no evidence for a bowel obstruction. Extensive sigmoid diverticulosis is present. There is no evidence for acute diverticulitis. Prominence of the posterior aspect of the uterine fundus is noted. This could be due to a fibroid. A small umbilical hernia contains a small amount of fluid and a few nodular densities. IMPRESSION: 1. Distended gallbladder with gallbladder wall thickening and pericholecystic infiltration. The findings represent moderate to severe acute cholecystitis. Given gallbladder wall irregularity, developing gangrenous cholecystitis cannot be excluded. Subtle hypointensity within the adjacent liver. This probably reflects edema in the setting of cholecystitis. However, an underlying neoplastic etiology is also within the differential. 2. Mild dilatation of the intrahepatic bile ducts with mass effect upon the common bile duct within the pascale hepatis, possibly due to lymphadenopathy. Prominent wall enhancement of the central bile ducts. Again, the findings could be infectious and related to cholecystitis or represent cholangitis. However, a neoplastic etiology cannot be excluded. The lymphadenopathy is likely reactive although could be neoplastic. 3. Extensive colonic diverticulosis. No evidence for acute diverticulitis. ACT 112: Negative or not required by law. Electronically signed by: Alex Nails M.D. 12/30/2023 1:22 PM Dictated: 12/30/23 1256 Transcribed: 12/30/23 1318 Results CBC w Diff Results: RBC 5.36 M/uL (4.20-5.40) 12/30/23 WBC 66.46 K/ul (4.8-10.8) H* 12/30/23 Hgb 13.3 g/dl (12.0-16.0) 12/30/23 Hct 41.4 % (37.0-47.0) 12/30/23 MCV 77.2 fL (80.0-100.0) L 12/30/23 MCH 24.8 pg (25.0-34.0) L 12/30/23 MCHC 32.1 g/dL (32.0-36.0) 12/30/23 RDW Standard Deviation 44.1 fL (36.4-46.3) 12/30/23 RDW Coefficient of Variation 15.9 % (11.5-14.5) H 12/30/23 Plt Count 287 K/uL (130-400) 12/30/23 MPV 10.9 fL (9.4-12.4) 12/30/23 Neutrophils (%) (Auto) 18.8 % 12/30/23 Lymphocytes (%) (Auto) 77.4 % 12/30/23 Monocytes # (Auto) 1.79 K/uL (0.11-0.59) H 12/30/23 Eosinophils # (Auto) 0.11 K/uL (0.00-0.50) 12/30/23 Immature Granulocyte % (Auto) 0.7 % 12/30/23 Neutrophils # (Auto) 12.53 K/uL (1.40-6.50) H 12/30/23 Lymphocytes # (Auto) 51.45 K/uL (1.20-3.40) H 12/30/23 Monocytes # (Auto) 1.79 K/uL (0.11-0.59) H 12/30/23 Eosinophils # (Auto) 0.11 K/uL (0.00-0.50) 12/30/23 Basophils # (Auto) 0.10 K/uL (0.00-0.20) 12/30/23 Immature Granulocyte # (Auto) 0.48 K/uL (0.01-0.20) H 12/29 Smudge Cells Present 12/08/22 Polychromasia 1+ 12/30/23 PG Care Time/CCT Total # of Minutes Spent Total Time Spent with Patient: Total time spent is greater than 50% in coordination of care (as documented) at patient's floor/unit and/or counseling patient: Coding Level of Care Code 43729 INT INP/OBS CARE 1/40MIN Diagnoses Cholecystitis K81.9
--- NOTE | 2023-12-30 14:49 | Ultrasound Report ---
US liver CLINICAL HISTORY: Cholecystitis. COMPARISON STUDY: CT of the abdomen and pelvis performed earlier today. FINDINGS: No hepatic lesions are identified. There is slight prominence of intrahepatic bile ducts. T he caliber of the common bile duct is normal, measuring 5 mm. Numerous gallstones within the gallblad hesham are present. The gallbladder is distended. There is moderate gallbladder wall thickening. No sono graphic Ruiz sign was reported. The pancreatic body is normal. Head and tail are obscured. There ar e several mildly enlarged pascale hepatis/peripancreatic lymph nodes that measure up to 2.9 x 2.5 x 1.1 cm. There is no right hydronephrosis. IMPRESSION: 1. Distended gallbladder which contains numerous stones. Moderate gallbladder wall thickening and tra ce pericholecystic fluid. No sonographic Ruiz sign. When correlating with CT, the findings suggest acute cholecystitis. 2. Slight prominence of intrahepatic bile ducts. Normal caliber common bile duct. 3. Mildly enlarged pascale hepatis/peripancreatic lymph nodes. These are likely reactive although a ena plastic etiology could appear similar. ACT 112: Negative or not required by law. Electronically signed by: Alex Nails M.D. 12/30/2023 2:47 PM
[2023-12-30] MEDS: cefOXitin 2,000 MG/60 ML BAG IV STA (15:05)
--- NOTE | 2023-12-30 15:36 | XRay Report ---
XR chest 1V portable CLINICAL HISTORY: Pre-op COMPARISON STUDY: Chest radiograph and right rib series May 06, 2022. FINDINGS: Right axillary surgical clips are noted. Status post right mastectomy. Linear bibasilar den sities favor atelectasis. There is no consolidation to suggest pneumonia. Cardiomediastinal silhouett e is stable. Pulmonary vascularity is normal. IMPRESSION: No acute cardiopulmonary findings. No change in appearance of the chest. ACT 112: Negative or not required by law. Electronically signed by: Alex Nails M.D. 12/30/2023 3:34 PM
--- NOTE | 2023-12-30 17:44 | Magnetic Resonance Report ---
EXAM: MR MRCP CLINICAL HISTORY: PT STATES GB ISSUES. ABDOMEN PAIN. TROUBLE GOING TO THE BATHROOM. GB INFLAMMED. ISSUES FOR A FEW MONTHS. NO N/V. NO PRIOR SURGERY. HX OF BREAST CANCER. NPO SINCE THIS AM. TECHNIQUE: Multiplanar multisequence magnetic resonance imaging of the abdomen without intravenous contrast. Only STIR sequences were preformed. Motion artifacts. COMPARISON: None. FINDINGS: Liver: Normal size and morphology. Signs of periportal edema noted. Gallbladder: Hydropic aspect with diffuse wall thickness. Multiple gallstones noted. Mild surrounding laminar fluid with fat stranding. Findings are consistent with acute cholecystitis. Two stones are noted at the cystic duct. They are compressing the common hepatic duct and causing proximal dilatation of the right and left hepatic ducts. There is also intra hepatic biliary radical dialation. Bile Ducts: Common bile duct is normal in caliber No evidence of choledocholithiasis. Pancreas: Normal size and contour. Homogeneous signal intensity on T2-weighted images. No masses or cystic lesions. Pancreatic Duct: Pancreatic duct is normal in caliber. No evidence of ductal dilatation or filling defects. IMPRESSION: Findings suggest acute cholecystitis. 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 Electronically signed by Alexandra Dukes 12-30-2023 5:44 PM
[2023-12-30] MEDS ORDERED: ACETAMINOPHEN 325 MG TAB PO PRN (18:19)
[2023-12-30] MEDS ORDERED: ONDANSETRON INJ 2 MG/ML 2 ML VIAL IV PRN (18:19)
[2023-12-30] MEDS: LACTATED RINGER'S 1,000 ML IV SCH (18:32)
[2023-12-31] MEDS: LEVOTHYROXINE SODIUM 75 MCG TABLET PO SCH (06:14)
[2023-12-31 06:55] LABS: Hemoglobin 11.7 g/dl (12.0-16.0); Mean Corpuscular Hemoglobin 25.4 pg (25.0-34.0); Mean Corpuscular Hgb Conc 32.5 g/dL (32.0-36.0); Mean Corpuscular Volume 78.3 fL (80.0-100.0); Mean Platelet Volume 11.2 fL (9.4-12.4); Platelet Count 212 K/uL (130-400); RDW Coefficient of Variation 15.8 % (11.5-14.5); RDW Standard Deviation 44.6 fL (36.4-46.3)
[2023-12-31 07:17] LABS: Albumin Level 3.4 gm/dl (3.4-5.0); BUN Creatinine Ratio 21.2 (10-20); Bilirubin,Total 0.9 mg/dl (0.2-1.0); Calcium 8.6 mg/dl (8.6-10.3); Creatinine Clr Calc Pharmacy 60.3 ml/min; Globulin 3.3 gm/dl (2.5-4.0); Potassium 3.5 mmol/L (3.5-5.1); Total Protein 6.7 gm/dl (6.0-8.3)
[2023-12-31] MEDS: PSYLLIUM or GUAR GUM FIBER 4GM PACKET PO SCH (07:57)
[2023-12-31] MEDS: hydroCHLOROthiazide 25 MG TAB PO SCH (07:57)
[2023-12-31] MEDS: LOSARTAN POTASSIUM 25 MG TAB PO SCH (07:58)
[2023-12-31] MEDS: PANTOprazole 40 MG TAB PO SCH (07:58)
[2023-12-31] MEDS: SIMVASTATIN 20 MG TAB PO SCH (07:59)
--- NOTE | 2023-12-31 08:41 | Hospitalist Progress Note ---
Date of Service December 31, 2023 Assessment & Plan (1) Cholecystitis: (2) HTN (hypertension): (3) HLD (hyperlipidemia): (4) GERD (gastroesophageal reflux disease): (5) Hypothyroidism: (6) History of right breast cancer: Plan Acute cholecystitis R flank Pain Constipation - Admit to med surg with tele - Surgery consulted for possible cholecystectomy/stent placement- no plans for surgical intervention today. 12/30: Discussed with surgery ROBERTO Emelina Smith and surgical team recommending transfer to [facility] for stent placement. Called daughter, Lashawn, @ [phone] to provide update. Lashawn's daughter is ill with PNA as well. [facility]: Accepting doc will be Dr. Kaz Rodriguez. [facility] will call Monday 01/01 w/bed assignment to transport - Will hold plavix, last dose was this morning; goal to hold plavix x5 days - Started on cefoxitin IV in the ER; continue with Zosyn - RUQ US reviewed showing distended gallbladder which contains multiple gallbladder stones. Moderate gallbladder wall thickening and trace pericholecystic fluid. - MRCP results from 12/30: Findings suggest acute cholecystitis. 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 -No transaminitis History of B cell CLL Right breast cancer - Follows with heme-onc as outpatient routinely, Dr. 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 Recurrence of R breast cancer in 2010, now s/p R mastectomy, completed 5 years of anastrozole in 2016 - WBC baseline ~ 60 K as per outpatient epic review from May 2023, today WBC 46.60 Hypothyroidism -TSH 4.53 on 12/26 -Continue levothyroxine Hx of TIA - Pt follows with neuro , Dr. Fountain, currently on plavix - Holding as above d/t possible surgery x5 days if possible -Confirmed with daughter that patient does have 'foggyness' when she is overwhelmed; no official diagnosis for dementia HTN HLD - Chronic, stable, Cont home meds: losartan 25 mg daily, HCTZ 12.5 mg daily, simvastatin 20 mg daily Spinal stenosis Ambulatory dysfunction - PT/OT consults Disposition: DVT ppx: teds, scds Lines: PIV x 2 FEN/GI: NPO CODE: Full code A total of 56 minutes were spent with greater than 50% of that time face to face with the patient, personally reviewing all current laboratories, imaging studies, past medication reconciliation, outpatient chart review, and discussion with specialists to collaborate care for the patient with attending. Please see attending documentation for corrections and/or additions. Admission and Anticipated Discharge Date Admission Date: December 30, 2023 Supervising Physician Co-Signing Physician Notes Patient seen and examined Discussed with Gen surgeon who recommended transfer to eval for axios stent placement I called transfer center and discussed with Dr Bustillo. Patient accepted for transfer to [facility] over the weekend Accepting Dr is Dr Rodriguez Continue to hold home plavis Continue IV antibiotics Agree with plans as detailed by Lizeth GLOVER I spent a total of 50 minutes coordinating, documenting and providing care for this patient excluding time spent in performance of separately billed services Subjective Pt lying in her hospital bed with c/o R abdominal pain Pt with some confusion around her admission and why she is here; was unable to tell me she was here for her gallbladder Denies fevers, chills, radiation with palpation in RUQ, N/V/D, swelling Discussed with surgery ROBERTO Emelina Smith and surgical team recommending transfer to [facility] for stent placement. Called daughter, Lashawn, @ [phone] to provide update. Lashawn's daughter is ill with PNA as well. See A/P for further details Review of Systems Review of Systems: Neuro: (-) Falls, trauma, slurred speech HEENT: (-) JAY, dizziness, dysphagia, visual or auditory changes CV: (-) CP, palpitations, swelling Resp: (-) SOB GI: (-) appetite changes, (+) tenderness, N/V/D, bowel changes. : (-) urinary changes Skin: (-) rashes Psych: (-) anxiety, depression Physical Exam Physical Exam: Neuro: AAOx4, PERRLA, no aphagia, memory changes, CNII-XII grossly intact HEENT: head normocephalic, moist mucus membranes CV: S1/S2, (-) M/G/R, (-) edema, cap refill < 3 seconds Resp: Lungs CTA in all vela. On RA GI: Abdomen S/ND (+) RUQ tenderness without radiation. Ax4 bowel sounds, (-) CVA tenderness Musculoskeletal: 5/5 B/L UE strength, 5/5 B/L LE strength. No gait disturbance Skin: (-) rashes , (-) erythema. Psych: euthymic mood Results & Data Results & Data Vital Signs (Past 12 Hours) Vital Signs Temp Pulse Pulse Resp BP Pulse Ox O2 Del Method 12/31/23 07:44 36.7 C 55 L 18 160/86 H 100 Room Air 12/31/23 07:00 84 12/31/23 02:50 36.6 C 96 H 18 133/83 92 Room Air 12/31/23 00:36 88 12/30/23 22:16 36.6 C 101 H 18 130/86 93 Room Air 12/30/23 21:45 96 H Laboratory Results Short CBC 12/30/23 12/31/23 Range/Units 11:25 06:10 WBC 66.46 H* 46.60 H* (4.8-10.8) K/ul Hgb 13.3 11.7 L (12.0-16.0) g/dl Hct 41.4 36.0 L (37.0-47.0) % Plt Count 287 212 (130-400) K/uL BMP 12/30/23 12/31/23 11:25 06:10 Sodium 135 L 141 Potassium 3.9 3.5 Chloride 103 107 Carbon Dioxide 20 L 25 BUN 19 14 Creatinine 0.84 0.66 Glucose 164 H 117 H Calcium 9.2 8.6 Liver Function 12/30/23 12/31/23 Range/Units 11:25 06:10 Total Bilirubin 0.8 0.9 (0.2-1.0) mg/dl AST 22 35 (13-39) U/L ALT 18 32 (7-52) U/L Alkaline Phosphatase 105 H 111 H (34-104) U/L Albumin 4.1 3.4 (3.4-5.0) gm/dl Urine 12/30/23 Range/Units 12:31 Urine Color Yellow Urine Appearance Clear (Clear) Urine pH 5.5 (4.5-7.5) Ur Specific [place] 1.013 (1.000-1.030) Urine Protein Negative (Negative) Urine Glucose (UA) Negative (Negative)
[2023-12-31] MEDS: AMPICILLIN/SULBACTAM SOD 3,000 MG/100 ML BAG IV SCH (09:29)
--- OUTSIDE RECORDS SUMMARY | 2023-12-31 13:07 | External Medical Summary ---
Author Name Unknown Address Unknown Organization [id number]:[place] [facility] [place] [address] [facility] [place] [address] Laboratory Report Ordering Provider Test Date Status TORITO DUFF 12/27/2023 16:19:06 Final Observation Date Value Abnormality Reference (Units ) Status BUN 12/27/2023 16:19:06 18 6-20 (mg/dL) Final Creatinine 12/27/2023 16:19:06 0.9 0.5-1.0 (mg/dL) Final Glomerular filtration rate/1.73 sq M.predicted [Volume Rate/Area] in Serum, Plasma or Blood by Creatinine-based formula (CKD-EPI) 12/27/2023 16:19:06 66 >=60 (mL/min) Final eGFR is calculated based on the CKD-EPI 2020 equation. Sodium 12/27/2023 16:19:06 140 135-146 (m mol/L) Final Potassium 12/27/2023 16:19:06 4.1 3.5-5.1 (m mol/L) Final Cl 12/27/2023 16:19:06 101 98-107 (mm ol/L) Final CO2 12/27/2023 16:19:06 24 22-32 (mmo l/L) Final Anion gap 12/27/2023 16:19:06 15 7-15 (mmol /L) Final Glucose 12/27/2023 16:19:06 104 70-120 (mg /dL) Final Albumin 12/27/2023 16:19:06 4.5 3.8-5.0 (g /dL) Final AST (Aspartate aminotransferase) 12/27/2023 16:19:06 18 10-35 (U/L) Fin al Alk Phos 12/27/2023 16:19:06 122 35-130 (U/ L) Final Bilirubin, Total 12/27/2023 16:19:06 0.5 <=1 .2 (mg/dL) Final Calcium 12/27/2023 16:19:06 10.1 8.4-10.2 ( mg/dL) Final Protein 12/27/2023 16:19:06 7.6 6.0-8.3 (g /dL) Final ALT (Alanine aminotransferase) 12/27/2023 16:19:06 8 Below low normal 10-35 (U/L) Final Performing Location [facility] [place] [address] [facility] [address]
--- OUTSIDE RECORDS SUMMARY | 2023-12-31 13:07 | External Medical Summary | Summary of Care ---
Author Name Unknown Organization [facility] Address [address] [address] Phone [phone] Care Team Providers Care Otr Tanker Truck Driver Name Role Phone Triston Bragg MD Primary Care Provider [phone] Reason for Visit * Reason Comments Outpatient Testing Encounter Details Date Type Department Care Team (Late st Contact Info) Description 12/27/2023 4:20 PM EST Laboratory Laboratory, [facility] [address] [place] [address] [facility] [address] [facility] [place] [id number] Acquired hypothyroidism; HTN, goal below 130/80 Allergies Active Allergy Reactions Criticality Noted Date Comments Penicillin G 10/21/2018 documented as of this encounter (statuses as of 12/27/2023) Medications Vitamin E 100 units Tablet Take 1 Tablet by mouth in the morning. Active Cholecalciferol (VITAMIN D) 1000 units Tablet Take 1 Tablet by mouth in the morning. Active Glucosamine-Chondr oit-Vit C-Mn (GLUCOSAMINE 1500 COMPLEX) Capsule Take 1 Capsule by mouth in the morning and 1 Capsule before bedtime. Active Turmeric 500 MG Capsule Take 1 Capsule by mouth in the morning. Active Diclofenac Sodium (VOLTAREN) 1 % gel Place 2 g topically on the skin 2 times a day. To affected area as directed. 100 g 5 9 Active Cetirizine HCl (ZYRTEC ALLERGY) 10 MG Capsule Take 1 Cap by mouth daily. 90 Cap 3 0 Active Ondansetron HCl 4 MG Oral Tablet Take 1 Tablet (4 mg) by mouth every 6 hours as needed for Nausea. 30 Tablet 2 Active guaiFENesin-Codein e 100-10 MG/5ML Oral Syrup (Robitussin AC)Indications:Chr onic cough Take 5 mL by mouth every 4 hours as needed for Cough. 236 mL 1 3 Active Lidocaine 4 % External Patch (Aspercreme) Place 1 Patch topically on the skin daily. 30 Patch 3 Active HYDROcodone-Acetam inophen 5-325 MG Oral TabletIndications: Primary osteoarthritis of both knees Take 1 Tablet by mouth every 6 hours as needed for Pain, Severe. 30 Tablet 3 Active Montelukast Sodium 10 MG Oral Tablet (Singulair) TAKE 1 TABLET BY MOUTH IN THE MORNING 90 Tablet 3 3 Active Metamucil 28.3 % Oral Powder (Psyllium) Take by mouth. Active traMADol 25 MG OR Tablet Take 0.5 Tablets by mouth every 6 hours as needed. Active Clopidogrel Bisulfate 75 MG Oral Tablet (Plavix) Take one daily 30 Tablet 3 4 Active Losartan Potassium 25 MG Oral Tablet (Cozaar) TAKE 1 TABLET BY MOUTH IN THE MORNING 90 Tablet 4 Active Simvastatin 20 MG Oral Tablet (Zocor)Indications :Dyslipidemia TAKE 1 TABLET BY MOUTH IN THE MORNING 90 Tablet 4 Active Levothyroxine Sodium 75 MCG Oral Capsule (Tirosint) Take 75 mcg by mouth daily first thing in the morning. 90 Capsule 4 Active hydroCHLOROthiazid e 12.5 MG Oral Capsule TAKE 1 CAPSULE BY MOUTH DAILY 90 Capsule 4 Active Pantoprazole Sodium 40 MG Oral Tablet Delayed Release (Protonix) TAKE 1 TABLET BY MOUTH IN THE MORNING 90 Tablet 4 Active Diclofenac Sodium 1 % External Gel (Voltaren) Apply topically to affected area 2 times a day. Apply to knees 150 g 1 4 Active documented as of this encounter (statuses as of 12/27/2023) Active Problems Problem Noted Date Diagnosed Date History of TIA (transient ischemic attack) 05/25 Primary osteoarthritis of both knees 12/16/2021 Ambulatory dysfunction 09/30/2021 Obesity, Class I, BMI 30.0-34.9 (see actual BMI) 04/11/2021 Gouty arthropathy 04/11/2021 Gastroesophageal reflux disease with esophagitis 06/24/2018 Acquired hypothyroidism 06/24/2018 HTN, goal below 130/80 06/24/2018 History of cancer of right breast 06/24/2018 CLL (chronic lymphocytic leukemia) 06/24/2018 Spinal stenosis of lumbar re gion without neurogenic claudication 06/24/2018 Dyslipidemia 06/24/2018 documented as of this encounter (statuses as of 12/27/2023) Resolved Problems Problem Noted Date Diagnosed Date Resolved Date Chronic cough 09/30/2021 12/16/2021 WENDY-inhibitor cough 05/13/2021 10/01/19 22 Arthritis of both knees 06/24/201809/2021 documented as of this encounter (statuses as of 12/27/2023) Immunizations No known immunizationsdocumented as of this encounter Social History Tobacco Use Types Packs/Day Years Used Date Smoking Tobacco: Never Smokeless Tobacco: Never Alcohol Use Standard Drinks/Week Comments Yes 0 (1 standard drink = 0.6 oz pur e alcohol) once in awhile PHQ-2 Answer Date Recorded PHQ-2 Score 0 10/21/2018 Hunger Vital Sign Answer Date Recorded Worried About Running Out of Food in the Last Ye ar Never true 10/16/2020 Ran Out of Food in the Last Year Never true 10/16/2020 Utilities Answer Date Recorded Do you have trouble paying y our heating, water, or electric bill? (Adult - for ages 18 years and over) Not on file 07/27/2023 Is your family able to pay t he heat, water, or electric bill? (Household - for ages 0-17 years) Not on file 07/27/2023 Does your family have access to good internet? (Household - for ages 0-17 years) Not on file 07/27/2023 Social Connections Answer Date Recorded How often do you feel lonely or isolated from those around you? (Adult - for ages 18 years and over) Not on file 07/27/2023 Comments No Sex and Gender Information Value Date Recorded Sex Assigned at Not on file Legal Sex Female 10:32 AM EST Gender Identity Not on file Sexual Orientation Not on file documented as of this encounter Plan of Treatment Upcoming Encounters Date Type Department Care Team (Late st Contact Info) Description 01/25/2024 11:30 AM EST Office Visit Hematology/Oncology State Sofia Peoples [address] [place] [phone] Suyapa Hirsch CRNP [address] [place] [phone] Pending Results Name Type Priority Associated Diagnoses Date /Time TSH WITH FREE T4 IF INDICATED Lab Routine Acquired hypothyroidism 12/27/2023 4:19 PM EST COMPREHENSIVE METABOLIC PANEL Lab Routine HTN, goal below 130/80 12/27/2023 4:19 PM EST Health Maintenance Due Date Last Done Comments DXA Scan 1935 COVID-19 Vaccine (#1) 11/11/1940 Albumin/Creatinine Ratio 11/11/1953 DTap/Tdap Vaccines (1 - Tdap) 11/11/1954 Zoster Vaccines (1 of 2) 11/11/1954 Adult Wellness Visit 11/11/2001 Depression Screening 10/22/2019 10/21/2018 Influenza Vaccine (FLU shot) (#1) 2023 11/17/2017, 11/06/2016, 11/06/2013, Additional history exists TSH 12/16/2023 12/15/2022, 1109/2021, 11/04/2020, Additional history exists Pneumococcal Vaccine: 65+ Years Completed 03/05/2016, 06/11/2014 HPV (Gardasil) Vaccine Aged Out No lo nger eligible based on patient's age to complete this topic Hepatitis B Vaccine Aged Out No longe r eligible based on patient's age to complete this topic MENINGOCOCCAL (MENACTRA/MENVEO) Aged Out No longer eligible based on patient's age to complete this topic documented as of this encounter Medical Devices Not on filedocumented as of this encounter Visit Diagnoses Diagnosis Acquired hypothyroidism Unspecified hypothyroidism HTN, goal below 130/80 Unspecified essential hypertension documented in this encounter Care Teams Otr Tanker Truck Driver Relationship Specialty Start Date End Date Triston Bragg MD [address] [place] [address] PCP - General Family Medicine 06/24/18 documented as of this encounter
--- OUTSIDE RECORDS SUMMARY | 2023-12-31 13:07 | External Medical Summary ---
Author Name Unknown Address Unknown Organization K01:[facility] [place] [address] [facility] [address] Laboratory Report Ordering Provider Test Date Status TORITO DUFF 12/27/2023 16:19:06 Final Observation Date Value Abnormality Reference (Units ) Status TSH 12/27/2023 16:19:06 4.53 Above high normal 0. 27-4.20 (uIU/mL) Final Performing Location [facility] [place] [address] [facility] [address]
--- OUTSIDE RECORDS SUMMARY | 2023-12-31 13:07 | External Medical Summary | Summary of Care ---
Author Name Unknown Organization [facility] Address [address] [facility] [place] [address] Phone [phone] Care Team Providers Care Multicraft Operator Name Role Phone Omega Ugarte MD Primary Care Provider [phone] [phone] Reason for Visit * Reason Comments eRx-Medication Refill Encounter Details Date Type Department Care Team (Late st Contact Info) Description 12/23/2023 Refill Family Practice [facility] [address] [place] [address] Omega Ugarte MD [address] [place] [address] Allergies Active Allergy Reactions Criticality Noted Date Comments Penicillin G 10/21/2018 documented as of this encounter (statuses as of 12/25/2023) Medications Vitamin E 100 units Tablet Take 1 Tablet by mouth in the morning. Active Cholecalciferol (VITAMIN D) 1000 units Tablet Take 1 Tablet by mouth in the morning. Active Glucosamine-Chond roit-Vit C-Mn (GLUCOSAMINE 1500 COMPLEX) Capsule Take 1 Capsule by mouth in the morning and 1 Capsule before bedtime. Active Turmeric 500 MG Capsule Take 1 Capsule by mouth in the morning. Active Diclofenac Sodium (VOLTAREN) 1 % gel Place 2 g topically on the skin 2 times a day. To affected area as directed. 100 g 5 06/30/19 19 Active Cetirizine HCl (ZYRTEC ALLERGY) 10 MG Capsule Take 1 Cap by mouth daily. 90 Cap 3 02/14/19 20 Active Ondansetron HCl 4 MG Oral Tablet Take 1 Tablet (4 mg) by mouth every 6 hours as needed for Nausea. 30 Tablet 01/17/20 22 Active guaiFENesin-Codei ne 100-10 MG/5ML Oral Syrup (Robitussin AC)Indications:Ch ronic cough Take 5 mL by mouth every 4 hours as needed for Cough. 236 mL 1 03/26/19 23 Active Lidocaine 4 % External Patch (Aspercreme) Place 1 Patch topically on the skin daily. 30 Patch 05/09/19 23 Active HYDROcodone-Aceta minophen 5-325 MG Oral TabletIndications :Primary osteoarthritis of both knees Take 1 Tablet by mouth every 6 hours as needed for Pain, Severe. 30 Tablet 12/22/19 23 Active Montelukast Sodium 10 MG Oral Tablet (Singulair) TAKE 1 TABLET BY MOUTH IN THE MORNING 90 Tablet 3 01/03/20 23 Active Metamucil 28.3 % Oral Powder (Psyllium) Take by mouth. Active traMADol 25 MG OR Tablet Take 0.5 Tablets by mouth every 6 hours as needed. Active Clopidogrel Bisulfate 75 MG Oral Tablet (Plavix) Take one daily 30 Tablet 3 09/02/19 24 Active Losartan Potassium 25 MG Oral Tablet (Cozaar) TAKE 1 TABLET BY MOUTH IN THE MORNING 90 Tablet 09/14/19 24 Active Simvastatin 20 MG Oral Tablet (Zocor)Indication s:Dyslipidemia TAKE 1 TABLET BY MOUTH IN THE MORNING 90 Tablet 09/14/19 24 Active Levothyroxine Sodium 75 MCG Oral Capsule (Tirosint) Take 75 mcg by mouth daily first thing in the morning. 90 Capsule 10/29/19 24 Active hydroCHLOROthiazi de 12.5 MG Oral Capsule TAKE 1 CAPSULE BY MOUTH DAILY 90 Capsule 12/25/19 24 Active Pantoprazole Sodium 40 MG Oral Tablet Delayed Release (Protonix) TAKE 1 TABLET BY MOUTH IN THE MORNING 90 Tablet 12/25/19 24 Active Pantoprazole Sodium 40 MG Oral Tablet Delayed Release (Protonix) Take 1 Tablet by mouth in the morning. 90 Tablet 10/29/19 24 024 Discontinued hydroCHLOROthiazi de 12.5 MG Oral Capsule Take 1 Cap by mouth daily. 90 Capsule 10/29/19 24 024 Discontinued documented as of this encounter (statuses as of 12/25/2023) Active Problems Problem Noted Date Diagnosed Date [...] as of this encounter (statuses as of 12/25/2023) Resolved Problems Problem Noted Date Diagnosed Date Resolved Date Chronic cough 09/30/2021 12/16/2021 WENDY-inhibitor cough 05/13/2021 10/01/19 22 Arthritis of both knees 06/24/201809/2021 documented as of this encounter (statuses as of 12/25/2023) Immunizations No known immunizationsdocumented as of this [...] on file documented as of this encounter Miscellaneous Notes * Telephone Encounter - Omega Ugarte MD - 12/25/2023 4:38 PM ESTSigned Prescriptions: Disp Refills hydroCHLOROthiazide 12.5 MG Oral Capsule 90 Cap*0 Sig: TAKE 1 CAPSULE BY MOUTH DAILY Authorizing Provider: OMEGA UGARTE Pantoprazole Sodium 40 MG Oral Tablet Marianne*90 Tab*0 Sig: TAKE 1 TABLET BY MOUTH IN THE MORNING Authorizing Provider: OMEGA UGARTE * Telephone Encounter - Fausto Oliveira [facility] - 12/25/2023 1:27 PM ESTPending Prescriptions: Disp Refills hydroCHLOROthiazide 12.5 MG Oral Capsule 90 Cap*0 Sig: TAKE 1 CAPSULE BY MOUTH DAILY Pantoprazole Sodium 40 MG Oral Tablet Marianne*90 Tab*0 Sig: TAKE 1 TABLET BY MOUTH IN THE MORNING * Telephone Encounter - Fausto Oliveira [facility] - 12/25/2023 1:27 PM EST Unable to authorize medication refills at this time. Patient did not meet protocol requirements. Patient needs current labs. Please approve if appropriate. Pending Prescriptions: Disp Refills hydroCHLOROthiazide 12.5 MG Oral Capsule 90 Cap*0 Sig: TAKE 1 CAPSULE BY MOUTH DAILY Pantoprazole Sodium 40 MG Oral Tablet Marianne*90 Tab*0 Sig: TAKE 1 TABLET BY MOUTH IN THE MORNING Last Visit: 05/26/2023 (in office), 08/13/2021 (telemedicine) Next Visit: 12/27/2023 If no future appointments scheduled, and last appointment is greater than a year ago, please schedule patient for a follow-up appointment Last date the medication was ordered: 10-29-23 Pharmacy: [address] Is this request for a controlled substance?No Urine Drug Screen:No results found for this or any previous visit. Patient Phone Numbers Labs: Lab Results Component Value Date/Time CREAT 0.78 12/08/2022 12:00 AM CREAT 0.8 06/24/2018 12:35 PM POTASSIUM 3.3 (A) 12/08/2022 12:00 AM POTASSIUM 3.5 06/24/2018 12:35 PM TSH 3.14 12/15/2022 11:14 AM TSH 2.03 06/24/2018 12:35 PM ALT <5 (L) 07/20/2022 01:54 PM ALT 12 06/24/2018 12:35 PM Amarjit Voss.Ph. Clinical Pharmacist [facility] [address] [place] [address] [address] [place] [address] MC: [id number] 12/25/2023,1:27 PM documented in this encounter Plan of Treatment Upcoming Encounters Date Type Department Care Team (Late st Contact Info) Description 12/27/2023 3:20 PM EST Office Visit Family [facility] [address] [place] [address] Omega Ugarte MD [address] [place] [address] 01/25/2024 11:30 AM EST Office Visit Hematology/On[facility] [address] [facility] [address] Suyapa Hirsch CRNP [address] [place] [address] Health Maintenance Due Date Last Done Comments DXA Scan 1935 COVID-19 Vaccine (#1) 11/11/1940 Albumin/Creatinine Ratio 11/11/1953 DTap/Tdap Vaccines (1 - Tdap) 11/11/1954 Zoster Vaccines (1 of 2) 11[birth year]11/1954 Adult Wellness Visit 11/11/2001 Depression Screening 10/22/2019 10/21/2018 Influenza Vaccine (FLU shot) (#1) 2023 11/17/2017, 11/06/2016, 11/06/2013, Additional history exists TSH 12/16/2023 12/15/2022, 09/2021, 11/04/2020, Additional history exists Pneumococcal Vaccine: 65+ [...] Not on filedocumented as of this encounter Care Teams Multicraft Operator Relationship Specialty Start Date End Date Omega Ugarte MD [address] [place] [address] PCP - General Family Medicine 06/24/18 documented as of this encounter
--- OUTSIDE RECORDS SUMMARY | 2023-12-31 13:07 | External Medical Summary | Summary of Care ---
Author Name Unknown Organization [facility] Address [address] [facility] [place] [address] Phone [phone] Care Team Providers Care Seo Engineer Name Role Phone Triston Bragg MD Primary Care Provider [phone] Reason for Visit * Reason Comments Physical-Exam Pt here for cpe, has area on L side of face that she would like check out Encounter Details Date Type Department Care Team (Latest Contact Info) Description 12/27/2023 3:20 PM EST Office Visit Family [facility] [address] [place] [phone] Triston Bragg MD [address] [place] [phone] Acquired hypothyroidism*; HTN, goal below 130/80; Gastroesophageal reflux disease with esophagitis without hemorrhage; Primary osteoarthritis of both knees; Gouty arthropathy; CLL (chronic lymphocytic leukemia) (HCC); History of TIA (transient ischemic attack); Obesity, Class I, BMI 30.0-34.9 (see actual BMI); Spinal stenosis of lumbar region without neurogenic claudication; Dyslipidemia Allergies Active Allergy Reactions Criticality Noted Date [...] on file documented as of this encounter Last Filed Vital Signs Vital Sign Reading Time Taken Comments Blood Pressure 126/78 12/27/2023 3:28 PM EST Pulse 84 12/27/2023 3:28 PM EST Temperature 36.8 C (98.2 F) 12/27/2023 3:28 PM ES T Respiratory Rate 18 12/27/2023 3:28 PM EST Oxygen Saturation - - Inhaled Oxygen Concentration - - Weight 83 kg (183 lb) 12/27/2023 3:28 PM EST Height 162.6 cm (5' 4") 12/27/2023 3:28 PM EST Body Mass Index 31.41 12/27/2023 3:28 PM EST documented in this encounter Progress Notes * Triston Bragg MD - 12/27/2023 9:05 PM EST SUBJECTIVE: Pauline Coon is a 88 year old female. Chief Complaint Patient presents with Physical-Exam Pt here for cpe, has area on L side of face that she would like check out HPI: Small plaque on left cheek. Patient and daughter wanted to make sure it's "not cancerous." It is not. I froze it today using liquid nitrogen. Pauline is doing very well. She is due for her yearly TSH. Her medications were reviewed and are stable. She has had no recent cardiopulmonary events, nor anything that resembles a TIA (for which she already sees neurology); Patient Active Problem List Diagnosis Gastroesophageal reflux disease with esophagitis Acquired hypothyroidism HTN, goal below 130/80 History of cancer of right breast CLL (chronic lymphocytic leukemia) (HCC) Spinal stenosis of lumbar region without neurogenic claudication Dyslipidemia Obesity, Class I, BMI 30.0-34.9 (see actual BMI) Gouty arthropathy Ambulatory dysfunction Primary osteoarthritis of both knees History of TIA (transient ischemic attack) Current Outpatient Medications Medication Sig Dispense Refill Vitamin E 100 units Tablet Take 1 Tablet by mouth in the morning. Cholecalciferol (VITAMIN D) 1000 units Tablet Take 1 Tablet by mouth in the morning. Nyygleoghid-Xxqpnwvlw-Leo C-Mn (GLUCOSAMINE 1500 COMPLEX) Capsule Take 1 Capsule by mouth in the morning and 1 Capsule before bedtime. Turmeric 500 MG Capsule Take 1 Capsule by mouth in the morning. Diclofenac Sodium (VOLTAREN) 1 % gel Place 2 g topically on the skin 2 times a day. To affected area as directed. 100 g 5 Cetirizine HCl (ZYRTEC ALLERGY) 10 MG Capsule Take 1 Cap by mouth daily. 90 Cap 3 Ondansetron HCl 4 MG Oral Tablet Take 1 Tablet (4 mg) by mouth every 6 hours as needed for Nausea. 30 Tablet 0 Lidocaine 4 % External Patch (Aspercreme) Place 1 Patch topically on the skin daily. 30 Patch 0 Montelukast Sodium 10 MG Oral Tablet (Singulair) TAKE 1 TABLET BY MOUTH IN THE MORNING 90 Tablet 3 traMADol 25 MG OR Tablet Take 0.5 Tablets by mouth every 6 hours as needed. Clopidogrel Bisulfate 75 MG Oral Tablet (Plavix) Take one daily 30 Tablet 3 Losartan Potassium 25 MG Oral Tablet (Cozaar) TAKE 1 TABLET BY MOUTH IN THE MORNING 90 Tablet 0 Simvastatin 20 MG Oral Tablet (Zocor) TAKE 1 TABLET BY MOUTH IN THE MORNING 90 Tablet 0 Levothyroxine Sodium 75 MCG Oral Capsule (Tirosint) Take 75 mcg by mouth daily first thing in the morning. 90 Capsule 0 hydroCHLOROthiazide 12.5 MG Oral Capsule TAKE 1 CAPSULE BY MOUTH DAILY 90 Capsule 0 Pantoprazole Sodium 40 MG Oral Tablet Delayed Release (Protonix) TAKE 1 TABLET BY MOUTH IN THE MORNING 90 Tablet 0 Diclofenac Sodium 1 % External Gel (Voltaren) Apply topically to affected area 2 times a day. Applyto knees 150 g 1 guaiFENesin-Codeine 100-10 MG/5ML Oral Syrup (Robitussin AC) Take 5 mL by mouth every 4 hours as needed for Cough. 236 mL 1 HYDROcodone-Acetaminophen 5-325 MG Oral Tablet Take 1 Tablet by mouth every 6 hours as needed for Pain, Severe. 30 Tablet 0 Metamucil 28.3 % Oral Powder (Psyllium) Take by mouth. No current facility-administered medications for this visit. Allergy: Review of patient's allergies indicates: Allergen Reactions Penicillin G OBJECTIVE: BP 126/78 | Pulse 84 | Temp 36.8 C (98.2 F) | Resp 18 | Ht 1.626 m (5' 4") | Wt 83 kg (183 lb) | BMI 31.41 kg/m | BSA 1.94 m General: alert, healthy, and no distress Head: Normocephalic, No masses, lesions, tenderness or abnormalities Neck: supple, no adenopathy, no bruits, thyroid normal size, non-tender, without nodularity Lungs: chest symmetric with normal AP diameter, no chest deformities noted, no chest wall tenderness, lungs clear to auscultation Heart: regular rate & rhythm, no murmur, and no gallops Abdomen: abdomen soft, non-tender, normal bowel sounds, and no masses or organomegaly Extremities: less than 2 second capillary refill, no joint deformities, effusion, or inflammation Neuro Exam: alert & oriented x 3 with fluent speech, no focal motor/sensory deficits, gait normal, reflexes normal and symmetric ASSESSMENT AND PLAN: (E03.9) Acquired hypothyroidism (primary encounter diagnosis) Plan: TSH WITH FREE T4 IF INDICATED -euthyroid (I10) HTN, goal below 130/80 Plan: COMPREHENSIVE METABOLIC PANEL -stable (K21.00) Gastroesophageal reflux disease with esophagitis without hemorrhage Plan: quiescent (M17.0) Primary osteoarthritis of both knees Plan: quiescent (M10.9) Gouty arthropathy Plan: quiescent (C91.10) CLL (chronic lymphocytic leukemia) (HCC) Plan: follows with heme/onc (Z86.73) History of TIA (transient ischemic attack) Plan: noted; continue plavix (E66.811) Obesity, Class I, BMI 30.0-34.9 (see actual BMI) Plan: stable (M48.061) Spinal stenosis of lumbar region without neurogenic claudication Plan: quiescent (E78.5) Dyslipidemia Plan: stable Follow up as needed. No other complaints were offered at this time. Triston Bragg MD documented in this encounter Nursing Notes * Ashley Parr LPN - 12/27/2023 3:28 PM EST The patient has been properly identified by confirmation of name and date of . Chief Complaint Patient presents with Physical-Exam Pt here for cpe, has area on L side of face that she would like check out documented in this encounter Plan of Treatment Upcoming Encounters Date Type Department Care Team (Late st Contact Info) Description 01/25/2024 11:30 AM EST Office Visit Hematology/Oncology [facility] [place] [address] [facility] [address] Suyapa Hirsch CRNP [address] [place] [address] Pending Results Name Type Priority Associated Diagnoses Date /Time TSH WITH FREE T4 IF INDICATED Lab Routine Acquired hypothyroidism 12/27/2023 4:19 PM EST COMPREHENSIVE METABOLIC PANEL Lab Routine HTN, goal below 130/80 12/27/2023 4:19 PM EST Scheduled Orders Name Type Priority Associated Diagnoses Orde r Schedule TSH WITH FREE T4 IF INDICATED Lab Routine Acquired hypothyroidism Expected: 12/27/2023 (Approximate), Expires: 12/26/2024 COMPREHENSIVE METABOLIC PANEL Lab Routine HTN, goal below 130/80 Expected: 12/27/2023 (Approximate), Expires: 12/26/2024 Health Maintenance Due Date Last Done Comments [...] of this encounter Visit Diagnoses Diagnosis Acquired hypothyroidism- Primary Unspecified hypothyroidism HTN, goal below 130/80 Unspecified essential hypertension Gastroesophageal reflux disease with esophagitis without hemorrhage Primary osteoarthritis of both knees Primary localized osteoarthrosis, lower leg Gouty arthropathy Gouty arthropathy, unspecified CLL (chronic lymphocytic leukemia) (HCC) Chronic lymphoid leukemia, without mention of having achieved remission History of TIA (transient ischemic attack) Transient ischemic attack (TIA), and cerebral infarction without residual deficits Obesity, Class I, BMI 30.0-34.9 (see actual BMI) Obesity, unspecified Spinal stenosis of lumbar region without neurogenic claudication Spinal stenosis, lumbar region, without neurogenic claudication Dyslipidemia Other and unspecified hyperlipidemia documented in this encounter Care Teams Seo Engineer Relationship Specialty Start Date End Date Triston Bragg MD [address] [place] [address] PCP - General Family Medicine 06/24/18 documented as of this encounter
--- OUTSIDE RECORDS SUMMARY | 2023-12-31 13:07 | External Medical Summary ---
Author Name Unknown Address Unknown Organization K01:[facility] [address] [place] [address] Laboratory Report Ordering Provider Test Date Status TORITO DUFF 12/27/2023 16:19:06 Final Observation Date Value Abnormality Reference (Units ) Status T4, Free 12/27/2023 16:19:06 1.7 0.9-1.7 (n g/dL) Final Performing Location [facility] [address] [place] [address]
--- OUTSIDE RECORDS SUMMARY | 2023-12-31 13:08 | External Medical Summary | Summary of Care ---
Author Name Unknown Organization [facility] Address [address] [facility] [place] [address] Phone [phone] Care Team Providers Care Handbag Stitcher Name Role Phone Omega Ugarte MD Primary Care Provider [phone] Reason for Visit * Reason Comments eRx-Medication Refill Encounter Details Date Type Department Care Team (Late st Contact Info) Description 09/13/2023 Refill Family Practice [facility] [address] [place] [phone] Omega Ugarte MD [address] [place] [address] Dyslipidemia Allergies Active Allergy Reactions Criticality Noted Date Comments Penicillin G 10/21/2018 documented as of this encounter (statuses as of 09/18/2023) Medications Medication Sig Dispensed Refills Start Date End Date Status Vitamin E 100 units Tablet Take 1 Tablet by mouth in the morning. Active Cholecalciferol (VITAMIN D) 1000 units Tablet Take 1 Tablet by mouth in the morning. Active Glucosamine-Chondro it-Vit C-Mn (GLUCOSAMINE 1500 COMPLEX) Capsule Take 1 Capsule by mouth in the morning and 1 Capsule before bedtime. Active Turmeric 500 MG Capsule Take 1 Capsule by mouth in the morning. Active Diclofenac Sodium (VOLTAREN) 1 % gel Place 2 g topically on the skin 2 times a day. To affected area as directed. 100 g 5 06/29/2018 Active hydroCHLOROthiazide (HYDRODIURIL) 12.5 MG Capsule Take 1 Cap by mouth daily. 30 Cap 5 12/07/2018 Active Cetirizine HCl (ZYRTEC ALLERGY) 10 MG Capsule Take 1 Cap by mouth daily. 90 Cap 3 02/14/2019 Active Pantoprazole Sodium 40 MG Oral Tablet Delayed Release (Protonix) Take 1 Tablet by mouth in the morning. Active Ondansetron HCl 4 MG Oral Tablet Take 1 Tablet (4 mg) by mouth every 6 hours as needed for Nausea. 30 Tablet 01/16/2022 Active guaiFENesin-Codeine 100-10 MG/5ML Oral Syrup (Robitussin AC)Indications:Application Manager jimmy cough Take 5 mL by mouth every 4 hours as needed for Cough. 236 mL 1 03/26/2022 Active Lidocaine 4 % External Patch (Aspercreme) Place 1 Patch topically on the skin daily. 30 Patch 05/08/2022 Active Levothyroxine Sodium 75 MCG Oral Capsule (Tirosint) Take 75 mcg by mouth daily first thing in the morning. - 90 Capsule 08/26/2022 Active HYDROcodone-Acetami nophen 5-325 MG Oral TabletIndications:P rimary osteoarthritis of both knees Take 1 Tablet by mouth every 6 hours as needed for Pain, Severe. 30 Tablet 12/21/2022 Active Montelukast Sodium 10 MG Oral Tablet (Singulair) TAKE 1 TABLET BY MOUTH IN THE MORNING 90 Tablet 3 01/02/2023 Active Metamucil 28.3 % Oral Powder (Psyllium) Take by mouth. Active traMADol 25 MG OR Tablet Take 0.5 Tablets by mouth every 6 hours as needed. Active Clopidogrel Bisulfate 75 MG Oral Tablet (Plavix) Take one daily 30 Tablet 3 09/02/2023 Active Losartan Potassium 25 MG Oral Tablet (Cozaar) TAKE 1 TABLET BY MOUTH IN THE MORNING 90 Tablet 09/14/2023 Active Simvastatin 20 MG Oral Tablet (Zocor)Indications: Dyslipidemia TAKE 1 TABLET BY MOUTH IN THE MORNING 90 Tablet 09/14/2023 Active Losartan Potassium 25 MG Oral Tablet (Cozaar) TAKE 1 TABLET BY MOUTH IN THE MORNING 90 Tablet 06/11/2023 09/14/19 24 Discontinued Simvastatin 20 MG Oral Tablet (Zocor)Indications: Dyslipidemia TAKE 1 TABLET BY MOUTH IN THE MORNING 90 Tablet 06/11/2023 09/14/19 24 Discontinued documented as of this encounter (statuses as of 09/18/2023) Active Problems Problem Noted Date Diagnosed Date [...] as of this encounter (statuses as of 09/18/2023) Resolved Problems Problem Noted Date Diagnosed Date Resolved Date Chronic cough 09/30/2021 12/16/2021 WENDY-inhibitor cough 05/13/2021 10/01/19 22 Arthritis of both knees 06/24/2018 11/0 09/2021 documented as of this encounter (statuses as of 09/18/2023) Immunizations No known immunizationsdocumented as of this [...] years and over) Not on file 07/27/2023 Sex and Gender Information Value Date Recorded Sex Assigned at Not on file Gender Identity Not on file Sexual Orientation Not on file Job Start Date Occupation Industry Not on file Not on file Not on file documented as of this encounter Miscellaneous Notes * Telephone Encounter - Amadou Tai - 09/17/2023 11:48 PM EDT Received message from [facility] regarding patient needing labs. Patient was notified. Successfully contacted patient and provided [facility] message. * Telephone Encounter - Tiffanie Samuel [facility] - 09/14/2023 9:22 AM EDT Signed Prescriptions: Disp Refills Losartan Potassium 25 MG Oral Tablet (Coza*90 Tab*0 Sig: TAKE 1 TABLET BY MOUTH IN THE MORNING Authorizing Provider: OMEGA UGARTE Ordering User: TIFFANIE SAMUEL Simvastatin 20 MG Oral Tablet (Zocor) 90 Tab*0 Sig: TAKE 1 TABLET BY MOUTH IN THE MORNING Authorizing Provider: OMEGA UGARTE Ordering User: TIFFANIE SAMUEL * Telephone Encounter - Tiffanie Samuel [facility] - 09/14/2023 9:20 AM EDT Second Attempt Provided 90 days supply with 0 refill(s). Per refill protocol patient should have lipids, repeat K+on file within past year. Reviewed AMP report, Care Gaps/Health Maintenance, medications list, and for any routine labs typically ordered for this patient. Lab orders placed. Please contact patient to advise of labs ordered for blood draw AND URINE specimen (patient will have to be able to void to provide sample). Fasting is not required. Advise to obtain labs before her scheduled office visit Visit date not found. Thank you, Tiffanie Samuel, PharmD Clinical Pharmacist [facility] ([facility]) 09/14/23 9:20 AM [phone] documented in this encounter Plan of Treatment Upcoming Encounters Date Type Department Care Team (Late st Contact Info) Description 10/14/2023 12:20 PM EDT Office Visit Nutrition & Weight Management, [facility] [address] [place] [address] Shefali Nolen PA-C [address] [place] [address] 01/25/2024 11:15 AM EST Office Visit Hematology/Oncology [facility] [address] [facility] [place] [phone] Sergio Alejandra MD [address] [facility] [place] [address] Health Maintenance Due Date Last Done Comments DXA Scan 1935 COVID-19 Vaccine (#1) 11/11/1940 Albumin/Creatinine Ratio 11/11/1953 DTaP,Tdap,and Td Vaccines (1 - Tdap) 11/11/1954 Zoster Vaccines (1 of 2) 11[birth year]11/1954 Adult Wellness Visit 11/11/2001 Depression Screening 10/22/2019 10/21/2018 Influenza Vaccine (FLU shot) (#1) 2023 11/17/2017, 11/06/2016, 11/06/2013, Additional history exists TSH 12/16/2023 12/15/2022, 11/0 09/2021, 11/04/2020, Additional history exists Pneumococcal Vaccine: [...] as of this encounter Visit Diagnoses Diagnosis Dyslipidemia Other and unspecified hyperlipidemia documented in this encounter Care Teams Handbag Stitcher Relationship Specialty Start Date End Date Omega Ugarte MD [address] [place] [address] PCP - General Family Medicine 06/24/18 documented as of this encounter
--- OUTSIDE RECORDS SUMMARY | 2023-12-31 13:08 | External Medical Summary | Summary of Care ---
Author Name Unknown Organization [facility] Address [address] [address] Phone [phone] Care Team Providers Care Last Putter Away Name Role Phone Triston Bragg MD Primary Care Provider [phone] Reason for Visit * Reason Onset Date Comments Medication Refill 09/02/2023 Encounter Details Date Type Department Care Team (Late st Contact Info) Description 09/02/2023 Refill Neurology [facility] Sofia Andrea [address] [place] [address] Leonid Smith MD [address] [place] [address] Allergies Active Allergy Reactions Criticality Noted Date Comments Penicillin G 10/21/2018 documented as of this encounter (statuses as of 09/02/2023) Medications Medication Sig Dispensed Refills Start Date End Date Status Vitamin E 100 units Tablet Take 1 Tablet by mouth in the morning. Active Cholecalciferol (VITAMIN D) 1000 units Tablet Take 1 Tablet by mouth in the morning. Active Glucosamine-Chondroi t-Vit C-Mn (GLUCOSAMINE 1500 COMPLEX) Capsule Take 1 [...] Active guaiFENesin-Codeine 100-10 MG/5ML Oral Syrup (Robitussin AC)Indications:Chron ic cough Take 5 mL by mouth every 4 hours as needed for Cough. 236 mL 1 03/26/2022 Active Lidocaine 4 % External Patch (Aspercreme) Place 1 Patch topically on the skin daily. 30 Patch 05/08/2022 Active Levothyroxine Sodium 75 MCG Oral Capsule (Tirosint) Take 75 mcg by mouth daily first thing in the morning. - 90 Capsule 08/26/2022 Active HYDROcodone-Acetamin ophen 5-325 MG Oral TabletIndications:Pr imary osteoarthritis of both knees Take 1 Tablet [...] mouth every 6 hours as needed. Active Losartan Potassium 25 MG Oral Tablet (Cozaar) TAKE 1 TABLET BY MOUTH IN THE MORNING 90 Tablet 06/11/2023 Active Simvastatin 20 MG Oral Tablet (Zocor)Indications:D yslipidemia TAKE 1 TABLET BY MOUTH IN THE MORNING 90 Tablet 06/11/2023 Active Clopidogrel Bisulfate 75 MG Oral Tablet (Plavix) Take one daily 30 Tablet 3 09/02/2023 Active Clopidogrel Bisulfate 75 MG Oral Tablet (Plavix) Take one daily 30 Tablet 3 08/23/2023 Discontinue d(Refill) documented as of this encounter (statuses as of 09/02/2023) Active Problems Problem Noted Date Diagnosed Date [...] as of this encounter (statuses as of 09/02/2023) Resolved Problems Problem Noted Date Diagnosed Date Resolved Date Chronic cough 09/30/2021 12/16/2021 WENDY-inhibitor cough 05/13/2021 10/01/19 22 Arthritis of both knees 06/24/2018 11/0 09/2021 documented as of this encounter (statuses as of 09/02/2023) Immunizations No known immunizationsdocumented as of this [...] encounter Miscellaneous Notes * Telephone Encounter - Leonid Smith MD - 09/02/2023 11:51 AM EDTSigned Prescriptions: Disp Refills Clopidogrel Bisulfate 75 MG Oral Tablet (P*30 Tab*3 Sig: Take one daily Authorizing Provider: LEONID SMITH * Telephone Encounter - Vivi Escobar, Decohunt - 09/02/2023 11:34 AM EDTPending Prescriptions: Disp Refills Clopidogrel Bisulfate 75 MG Oral Tablet (P*30 Tab*3 Sig: Take one daily documented in this encounter Plan of Treatment Upcoming Encounters Date Type Department Care Team (Late st Contact Info) Description 10/14/2023 12:20 PM EDT Office Visit Nutrition & Weight Management, [facility] [address] [place] [address] Shefali Nolen PA-C [address] [place] [address] 01/25/2024 11:15 AM EST Office Visit Hematology/Oncology Janay [address] [place] [address] [place] [phone] Sergio Alejandra MD [address] [place] [address] Health Maintenance Due Date Last Done Comments DXA Scan 1935 COVID-19 Vaccine (#1) 11/11/1940 Albumin/Creatinine Ratio 11/11/1953 DTaP,Tdap,and Td Vaccines (1 - Tdap) 11/11/1954 Zoster Vaccines (1 of 2) 11/11/1954 Depression Screening 10/22/2019 10/21/2018 Influenza Vaccine (FLU shot) (#1) 2023 11/17/2017, 11/06/2016, 11/06/2013, Additional history exists TSH 12/16/2023 12/15/2022, 11/09/2021, 11/04/2020, Additional history exists Pneumococcal Vaccine: 65+ [...] filedocumented as of this encounter Care Teams Last Putter Away Relationship Specialty Start Date End Date Triston Bragg MD [address] [place] [address] PCP - General Family Medicine 06/24/18 documented as of this encounter
--- OUTSIDE RECORDS SUMMARY | 2023-12-31 13:08 | External Medical Summary | Continuity of Care Document ---
Author Name Unknown Organization [address] Address [address] [place] [phone] Care Team Providers Care Director Of Workforce Development Name Role Phone Triston Bragg Primary Care Physician [phone] [id number]): [facility]/07[facility]23 - 12/07/23 [facility] [address] [place], [place] [address] [facility] Sports Medicine [address] [place], [place] [id number] Encounter Diagnosis Osteoarthritis of knees, bilateral(Discharge Diagnosis) - 12/07/23 Discharge Disposition: Home or Self Care Attending Physician: MD Culp Philip J Referring Physician: MD Culp Philip J Allergies, Adverse Reactions, Alerts No Known Allergies Assessment and Plan Extracted from: Title:Orthopaedics Office Visit Note Author:Jarad chakraborty MD, Philip J Date:12/07/23 Osteoarthritis of knees, zoila ateral Tanvi would like to proceed with the ultrasound-guided Hyalgan injections.The sites of injections were confirmed, and the patient was correctly identified.I was assisted with these procedures byKarla Vigil LPN. [facility]. Left knee DJD Verbal consent was obtained and a timeout procedure was performed per [facility] protocol.The suprapatellar pouch was localized over the anterolateral aspect of the left knee with ultrasound assistance.The skin of the anterolateral knee was then prepped in a sterile manner with ChloraPrep skin prep and sterile ultrasound gel was used for the procedure.Then using an in plane approach, a 22-gauge 1-1/2 inch needle was advanced towards the suprapatellar pouch and2 cc of 1% lidocaine without epinephrine was injected along the needle path and into the suprapatellar pouch.The needle was kept in place, syringes were changed, and 2 cc of Hyalgan were injected into the suprapatellar pouch.The needle was withdrawn the knee was cleaned and a Band-Aid was applied. Right knee DJD Verbal consent was obtained and a timeout procedure was performed per [facility] protocol.The suprapatellar pouch was localized over the anterolateral aspect of theright knee with ultrasound assistance.The skin of the anterolateral knee was then prepped in a sterile manner with ChloraPrep skin prep and sterile ultrasound gel was used for the procedure.Then using an in plane approach, a 22-gauge 1-1/2 inch needle was advanced towards the suprapatellar pouch and2 cc of 1% lidocaine without epinephrine was injected along the needle path and into the suprapatellar pouch. The needle was kept in place, syringes were changed, and 2 cc of Hyalgan were injected into the suprapatellar pouch.The needle was withdrawn the knee was cleaned and a Band-Aid was applied. Tanvi will follow up in 6 months to restart the series of Hyalgan injections. She should follow up sooner if she develops recurrent pain in either knee prior to that time. She should follow-up sooner if she notes any increased redness warmth or pain at the injection site.Her daughter is present for today's exam and is aware of this plan. Medications aspirin 81 mg oral delayed release tablet Start: 02/25/18 3:39:00 PM EST, 1 tab, PO, Daily Start Date: 02/25/18 Status: Ordered calcium (as calcium citrate) 250 mg oral tablet Start: 02/25/18 3:43:00 PM EST, 1 tab, PO, bid Start Date: 02/25/18 Status: Ordered Hyalgan 10 mg/mL intra-articular solution Start: 02/10/23 10:52:00 AM EST, 20 mg =, intra-articular, q7days, Disp# 12 mL, Refills: 0, pulled from office stock, Note to Pharmacy: B/L KNEE DJD M17.0, other Start Date: 02/10/23 Stop Date: 03/03/23 Status: Ordered hydroCHLOROthiazide Start: 02/25/18 3:37:00 PM EST, 12.5 mg = Start Date: 02/25/18 Status: Ordered levothyroxine Start: 02/25/18 3:35:00 PM EST Start Date: 02/25/18 Status: Ordered losartan 25 mg oral tablet Start: 02/25/18 3:38:00 PM EST, 1 tab, PO, Daily Start Date: 02/25/18 Status: Ordered montelukast 10 mg oral tablet Start: 10/01/21 1:15:00 PM EDT Start Date: 10/01/21 Status: Ordered pantoprazole Start: 02/25/18 3:33:00 PM EST Start Date: 02/25/18 Status: Ordered simvastatin 20 mg oral tablet Start: 02/25/18 3:38:00 PM EST, 1 tab, PO, qhs Start Date: 02/25/18 Status: Ordered traMADol 50 mg oral tablet Start: 05/20/22 1:10:00 PM EDT, 1 tab, PO, q4h, PRN: as needed for pain Start Date: 05/20/22 Status: Ordered Vitamin C Start: 02/25/18 3:40:00 PM EST Start Date: 02/25/18 Status: Ordered Vitamin D2 Start: 02/25/18 3:42:00 PM EST Start Date: 02/25/18 Status: Ordered vitamin E Start: 02/25/18 3:40:00 PM EST Start Date: 02/25/18 Status: Ordered Mental Status 12/07/23 Barriers to Learning one year None evide nt Mandatory Health Literacy Documentation Yes Health Literacy Communication Barriers N ever Primary Language Bhutanese Problem List Condition Confirmation Course Effective Dates Status H ealth Status Informant Osteoarthritis of knees, bilateral Confirmed Active Erythema of lower extremity Confirmed Active Osteoarthritis, hand Confirmed Active Left knee DJD Confirmed Active Right knee DJD Confirmed Active Diagnosis Diagnosis Type Effective Dates Health Status Clinical Service Informant Osteoarthritis of knees, bilateral Discharge Diagnosis 12/07/23 Non-Specified Procedures Procedure Date Related Diagnosis Body Site Status Breast lumpectomy Complet ed Knee 1 Completed Mastectomy 2 Completed 1right knee meniscus repair 2right Social History Social History Type Response Smoking Status Never smoked cigaret aline Sex Female Sex Representation Female (finding) Ortho Outpt Note * MD Culp Philip J: PERFORM Event Display: Ortho Outpt Note Authored Date: [id number] Primary Care Provider MD Bragg Anthony J Referring Provider Bosha, MD, Cj J Chief Complaint US guided Hyalgan inj 5 of 5 to each knee History of Present Illness Tanvi is an 88-year-old female, she has noticed some improvement in her knee pain since her last office visit.She is seen today for her 5th of 5 Hyalgan injections. She tolerated last week's injections well. Physical Exam General: Appears well. She is seen on an adjustable table. Accompanied by her daughter, ambulating comfortably with the use of a walker. Bilateral knees: there is no effusion, she is able to flex and extend the knees she is slightly tender over the medial joint line bilaterally.The knees are non tender to palpation.There is resolving bruising at the site of last week's injections. Assessment/Plan Osteoarthritis of knees, bilateral Tanvi would like to proceed with the ultrasound-guided Hyalgan injections.The sites of injections were confirmed, and the patient was correctly identified.I was assisted with these procedures byKarla Vigil LPN. Images of [facility]procedures [facility]resaved in [facility]. Left knee DJD Verbal consent was obtained and a timeout procedure was performed per [facility] protocol.The suprapatellar pouch was localized over the anterolateral aspect of the left knee with ultrasound assistance.The skin of the anterolateral knee was then prepped in a sterile manner with ChloraPrep skin prep and sterile ultrasound gel was used for the procedure.Then using an in plane approach, a 22-gauge 1-1/2 inch needle was advanced towards the suprapatellar pouch and2 cc of 1% lidocaine without epinephrine was injected along the needle path and into the suprapatellar pouch.The needle was kept in place, syringes were changed, and 2 cc of Hyalgan were injected into the supr apatellar pouch.The needle was withdrawn the knee was cleaned and a Band-Aid was applied. Right knee DJD Verbal consent was obtained and a timeout procedure was performed per [facility] protocol.The suprapatellar pouch was localized over the anterolateral aspect of theright knee with ultrasound assistance.The skin of the anterolateral knee was then prepped in a sterile manner with ChloraPrep skin prep and sterile ultrasound gel was used for the procedure.Then using an in planeapproach, a 22-gauge 1-1/2 inch needle was advanced towards the suprapatellar pouch and2 cc of 1%lidocaine without epinephrine was injected along the needle path and into the suprapatellar pouch.The needle was kept in place, syringes were changed, and 2 cc of Hyalgan were injected into the suprapatellar pouch.The needle was withdrawn the knee was cleaned and a Band- Aid was applied. Tanvi will follow up in 6 months to restart the series of Hyalgan injections. She should follow up sooner if she develops recurrent pain in either knee prior to that time. She should follow-up sooner if she notes any increased redness warmth or pain at the injection site.Her daughter is present for today's exam and is aware of this plan. Problem List/Past Medical History Ongoing Erythema of lower extremity Left knee DJD Osteoarthritis of knees, bilateral Osteoarthritis, hand Right knee DJD Procedure/Surgical History MastectomyBreast lumpectomyKnee Medications ascorbic acid(Vitamin C) aspirin(aspirin 81 mg oral delayed release tablet), 81 mg= 1 tab, PO, Daily calcium citrate(calcium (as calcium citrate) 250 mg oral tablet), 250 mg= 1 tab, PO, bid ergocalciferol(Vitamin D2) hydroCHLOROthiazide, 12.5 mg levothyroxine losartan(losartan 25 mg oral tablet), 25 mg= 1 tab, PO, Daily montelukast(montelukast 10 mg oral tablet) pantoprazole simvastatin(simvastatin 20 mg oral tablet), 20 mg= 1 tab, PO, qhs sodium hyaluronate(Hyalgan 10 mg/mL intra-articular solution), 20 mg= 2 mL, intra-articular, ONCE sodium hyaluronate(Hyalgan 10 mg/mL intra-articular solution), 20 mg= 2 mL, intra-articular, ONCE sodium hyaluronate(Hyalgan 10 mg/mL intra-articular solution), 20 mg, intra- articular, q7days traMADol(traMADol 50 mg oral tablet), 50 mg= 1 tab, PO, q4h, PRN vitamin E Allergies NKA Social History Smoking Status Never smoked cigarettes Family History Heart disease: Mother. Health Status Family Member(s) Recommendations Health Maintenance Pending(in the next year) OverDue Adult Influenza Vaccine due08/08/23and every 1year Due Adult COVID-19 Vaccination due12/07/23Unknown Frequency Adult Social Determinants of Health Screening due12/07/23Unknown Frequency Adult Tdap/Td Vaccine due12/07/23Unknown Frequency Lipid Screening due12/07/23Unknown Frequency Medicare Annual Wellness Visit due12/07/23and every 1year Pneumococcal Vaccine Older Adults due12/07/23One-time only Shingles Vaccine due12/07/23One-time only Due In Future Body Mass Index not due until11/09/24and every 366day Satisfied(in the past 1 year) Satisfied Body Mass Index on11/09/23.Satisfied by BUNNY Vigil Bonita Electronic Signature on File CC: Triston Bragg MD [facility] [address] [facility] [place] [address] * Electronically Reviewed/Signed by: Cj Culp MD Author Signature Dt/Tm:12/07/2023 01:22 PM Division of Sports Medicine P[facility] Patient Care team information Care Team Personnel Name: MD Mahsa, Triston Yoder Position: Referring DIRECT Member Role: Primary Care Provider Address: [facility] [address] [facility] [place] [address] [place]
--- OUTSIDE RECORDS SUMMARY | 2023-12-31 13:08 | External Medical Summary | Continuity of Care Document ---
Author Name Unknown Organization [address] Address [address] [place] [phone] Care Team Providers Care Corporate Lawyer Name Role Phone Triston Bragg Primary Care Physician [phone] [id number] Date[facility] 12/01/23 - 12/01/23 [place] [id number] [facility] Sports Medicine [address] [place], [place] [id number] Encounter Diagnosis Osteoarthritis of knees, bilateral(Discharge Diagnosis) - 12/01/23 Discharge Disposition: Home or Self Care Attending Physician: MD Culp Philip J Referring Physician: MD Culp Philip J Allergies, Adverse Reactions, Alerts No Known Allergies Assessment and Plan Extracted from: Title:Orthopaedics Office Visit Note Author:Jarad chakraborty MD, Philip J Date:12/01/23 Osteoarthritis of knees, zoila ateral Tanvi would like to proceed with the ultrasound-guided Hyalgan injections.The sites of injections were confirmed, and the patient was correctly identified.I was assisted with these procedures byKarla Vigil LPN. Left knee DJD Verbal consent was obtained and a timeout procedure was performed per [facility] protocol.The suprapatellar pouch was localized over the [...] and a timeout procedure was performed per [facility] protocol.The suprapatellar pouch was localized over the [...] was cleaned and a Band-Aid was applied. [facility] Tanvi will follow up in 1 week for the 5th of 5 Hyalgan injections.She should follow-up sooner if she notes any increased redness warmth or pain at the injection sites. Medications aspirin 81 mg oral delayed release [...] Start Date: 02/25/18 Status: Ordered Mental Status 12/01/23 Barriers to Learning one year None evide nt Mandatory Health Literacy Documentation Yes Health Literacy Communication Barriers N ever Primary Language Amharic Problem List Condition Confirmation Course Effective Dates Status H ealth Status Informant Osteoarthritis of knees, bilateral Confirmed Active Erythema of lower extremity Confirmed Active Osteoarthritis, hand Confirmed Active Left knee DJD Confirmed Active Right knee DJD Confirmed Active Diagnosis Diagnosis Type Effective Dates Health Status Clinical Service Informant Osteoarthritis of knees, bilateral Discharge Diagnosis 12/01/23 Non-Specified Procedures Procedure Date Related Diagnosis Body Site Status Breast lumpectomy Complet ed Knee 1 Completed Mastectomy 2 Completed 1right knee meniscus repair 2right Social History Social History Type Response Smoking Status Never smoked cigaret aline Sex Female Sex Representation Female (finding) Ortho Outpt Note * MD Culp Philip J: PERFORM Event Display: Ortho Outpt Note Authored Date: [id number] Primary Care Provider MD Bragg Anthony J Referring Provider MD Culp Philip J Chief Complaint US guided Hyalgan inj 4 of 5 to each knee History of Present Illness Tanvi is a 88-year-old female, she has noticed some improvement in her knee pain since her last office visit.She is seen today for her 4th of 5 Hyalgan injections. She tolerated last week's injections well. Physical Exam Assessment/Plan 1.Osteoarthritis of knees, bilateral Physical Exam General: Appears well. She is seen on an adjustable table. Accompanied by her daughter. Ambulating with the use of a walker. Bilateral [...] assisted with these procedures byKarla Vigil LPN. Left knee DJD Verbal consent was obtained and a timeout procedure was performed per [facility] protocol.The suprapatellar pouch was localized over the [...] and a timeout procedure was performed per [facility] protocol.The suprapatellar pouch was localized over the [...] changed, and 2 cc of Hyalgan were inje cted into the suprapatellar pouch.The needle was withdrawn the knee was cleaned and a Band-Aid was applied. [facility] Tanvi will follow up in 1 week for the 5th of 5 Hyalgan injections.She should follow-up soonerif she notes any increased redness warmth or pain at the injection sites. Problem List/Past Medical History Ongoing Erythema of [...] intra-articular solution), 20 mg, intra- articular, q7days sodium hyaluronate(Hyalgan 10 mg/mL intra-articular solution), 20 mg= 2 mL, intra-articular, ONCE sodium hyaluronate(Hyalgan 10 mg/mL intra-articular solution), 20 mg= 2 mL, intra-articular, ONCE traMADol(traMADol 50 mg oral tablet), 50 mg= 1 tab, PO, q4h, PRN vitamin E Allergies NKA Social History Smoking Status Never smoked cigarettes Family History Heart disease: Mother. Health Status Family Member(s) Recommendations Health Maintenance Pending(in the next year) OverDue Adult Influenza Vaccine due08/08/23and every 1year Due Adult COVID-19 Vaccination due12/01/23Unknown Frequency Adult Social Determinants of Health Screening due12/01/23Unknown Frequency Adult Tdap/Td Vaccine due12/01/23Unknown Frequency Lipid Screening due12/01/23Unknown Frequency Medicare Annual Wellness Visit due12/01/23and every 1year Pneumococcal Vaccine Older Adults due12/01/23One-time only Shingles Vaccine due12/01/23One-time only Due In Future Body Mass Index not due until11/09/24and every day Satisfied(in the past 1 year) Satisfied Body Mass Index on11/09/23.Satisfied by BUNNY Vigil Bonita Electronic Signature on File Electronically Reviewed/Signed by: Cj Culp MD Author Signature Dt/Tm:12/01/2023 11:33 AM Division of Sports Medicine [facility] Patient Care team information Care Team Personnel Name: MD Mahsa, Triston Yoder Position: Referring DIRECT Member Role: Primary Care Provider Address: [address] [place] [address]
--- OUTSIDE RECORDS SUMMARY | 2023-12-31 13:08 | External Medical Summary | Summary of Care ---
Author Name Unknown Organization [facility] [address] [facility] [address] Phone [phone] Care Team Providers Care Mud Trucker Name Role Phone Omega Bragg MD Primary Care Provider [phone] Reason for Visit * Reason Comments Return Neuro Encounter Details Date Type Department Care Team (Late st Contact Info) Description 08/23/2023 1:00 PM EDT Office Visit Neurology [facility] [place] [address] [facility] [place] [address] Pilar Smith MD [address] [place] [id number] History of TIA (transient ischemic attack)* Allergies Active Allergy Reactions Criticality Noted Date Comments Penicillin G 10/21/2018 documented as of this encounter (statuses as of 08/31/2023) Medications Medication Sig Dispensed Refills Start Date [...] as directed. 100 g 5 9 Active hydroCHLOROthiazid e (HYDRODIURIL) 12.5 MG Capsule Take 1 Cap by mouth daily. 30 Cap 5 9 Active Cetirizine HCl (ZYRTEC ALLERGY) 10 MG Capsule Take 1 Cap by mouth daily. 90 Cap 3 0 Active Pantoprazole Sodium 40 MG Oral Tablet [...] the skin daily. 30 Patch 3 Active Levothyroxine Sodium 75 MCG Oral Capsule (Tirosint) Take 75 mcg by mouth daily first thing in the morning. - 90 Capsule 3 Active HYDROcodone-Acetam inophen 5-325 MG Oral [...] IN THE MORNING 90 Tablet 4 Active Clopidogrel Bisulfate 75 MG Oral Tablet (Plavix) Take one daily 30 Tablet 3 4 Active Aspirin 81 MG Tablet Take 1 Tablet by mouth in the morning. 08/23/19 24 Discontinued Clopidogrel Bisulfate 75 MG Oral Tablet (Plavix) Take one daily 14 Tablet 4 08/23/19 24 Discontinued(Ref ill) documented as of this encounter (statuses as of 08/31/2023) Active Problems Problem Noted Date Diagnosed Date [...] as of this encounter (statuses as of 08/31/2023) Resolved Problems Problem Noted Date Diagnosed Date Resolved Date Chronic cough 09/30/2021 12/16/2021 WENDY-inhibitor cough 05/13/2021 10/01/19 22 Arthritis of both knees 06/24/20180 09/2021 documented as of this encounter (statuses as of 08/31/2023) Immunizations No known immunizationsdocumented as of this [...] Sign Reading Time Taken Comments Blood Pressure 130/76 08/23/2023 12:51 PM EDT Pulse 91 08/23/2023 12:51 PM EDT Temperature 36.4 C (97.5 F) 08/23/2023 12:51 PM E DT Respiratory Rate 16 08/23/2023 12:51 PM EDT Oxygen Saturation 96% 08/23/2023 12:51 PM EDT Inhaled Oxygen Concentration - - Weight 84.8 kg (187 lb) 08/23/2023 12:51 PM EDT Height - - Body Mass Index 32.1 05/26/2023 3:24 PM EDT documented in this encounter Progress Notes * Oma Rodarte, Medical Student - 08/23/2023 1:38 PM EDT Unless the attending has added an attestation supporting use of this note to document a billable service, the signature of the Licensed Professional on this note only acknowledges the presence of thestudent's note within the patient record and the Licensed Professional's note should be referred tofor clinical information and recommendations. NEUROLOGY [facility] Ref: SELF[[id number]] [address] ADDRESS AVAILABLE None (office) None (fax) PCP: OMEGA BRAGG [address] [place] [address] [phone] Chief Complaint Patient presents with Return Neuro History of Present Illness: Pauline Coon is a 87 year old female with pmHx of HLD, HTN, CLL, hypothyroidism and prior TIAs presents today for a follup up for TIA with expressive aphasia in May 2023.The patient had had two of these episodes in November 2022 and May 2023, but does not report any reoccurrence. She has had no changes in her speech pattern or comprehension since. Patient denies headache, vision changes, weakness, or sensory abnormalities. She does report from generalized arthralgias, but this is not out of the normal for her. On occasion she has some pain in her left shoulder, but it is relieved by stretching and movement. Her daughter who accompanied her at this visit says it happens when she puts too much weight on her walker. Her gait has remained the same, and uses a walker for ambulation. The patient lives with her daughter, and says she is very happy there. Her daughter has not noticed any changes or TIA episodes either since May. She did have an echocardiogram and EKG done to rule out other causes for the TIA, and these were overall unremarkable. She is tolerating the plavix well and denies any excessive bruising/ bleeding or GI upset. REVIEW OF SYSTEMS: All other 14 systems have been reviewed and were negative except as per the HPI. Current Outpatient Medications: Current Outpatient Medications Medication Sig Dispense Refill Clopidogrel Bisulfate 75 MG Oral Tablet (Plavix) Take one daily 30 Tablet 3 Vitamin E 100 units Tablet Take 1 Tablet by mouth in the morning. Cholecalciferol (VITAMIN D) 1000 units Tablet Take 1 Tablet by mouth in the morning. Seryhyhigju-Tyudjhzjy-Alp C-Mn (GLUCOSAMINE 1500 COMPLEX) Capsule Take 1 Capsule by mouth in the morning and 1 Capsule before bedtime. Turmeric 500 MG Capsule Take 1 Capsule by mouth in the morning. Diclofenac Sodium (VOLTAREN) 1 % gel Place 2 g topically on the skin 2 times a day. To affected area as directed. 100 g 5 hydroCHLOROthiazide (HYDRODIURIL) 12.5 MG Capsule Take 1 Cap by mouth daily. 30 Cap 5 Cetirizine HCl (ZYRTEC ALLERGY) 10 MG Capsule Take 1 Cap by mouth daily. 90 Cap 3 Pantoprazole Sodium 40 MG Oral Tablet Delayed Release (Protonix) Take 1 Tablet by mouth in the morning. Ondansetron HCl 4 MG Oral Tablet Take 1 Tablet (4 mg) by mouth every 6 hours as needed for Nausea. 30 Tablet 0 guaiFENesin-Codeine 100-10 MG/5ML Oral Syrup (Robitussin AC) Take 5 mL by mouth every 4 hours as needed for Cough. 236 mL 1 Lidocaine 4 % External Patch (Aspercreme) Place 1 Patch topically on the skin daily. 30 Patch 0 Levothyroxine Sodium 75 MCG Oral Capsule (Tirosint) Take 75 mcg by mouth daily first thing in the morning. - 90 Capsule 0 HYDROcodone-Acetaminophen 5-325 MG Oral Tablet Take 1 Tablet by mouth every 6 hours as needed for Pain, Severe. 30 Tablet 0 Montelukast Sodium 10 MG Oral Tablet (Singulair) TAKE 1 TABLET BY MOUTH IN THE MORNING 90 Tablet 3 Metamucil 28.3 % Oral Powder (Psyllium) Take by mouth. traMADol 25 MG OR Tablet Take 0.5 Tablets by mouth every 6 hours as needed. Losartan Potassium 25 MG Oral Tablet (Cozaar) TAKE 1 TABLET BY MOUTH IN THE MORNING 90 Tablet 0 Simvastatin 20 MG Oral Tablet (Zocor) TAKE 1 TABLET BY MOUTH IN THE MORNING 90 Tablet 0 No current facility-administered medications for this visit. Allergies: Review of patient's allergies indicates: Allergen Reactions Penicillin G Medical History: Past Medical History: Diagnosis Date Acquired hypothyroidism 06/24/2018 Arthritis of both knees 06/24/2018 Breast cancer ([facility]) 1998 Breast cancer ([facility]) 2009 mastectomy Chronic cough 09/30/2021 CLL (chronic lymphocytic leukemia) ([facility]) 06/24/2018 Dyslipidemia 06/24/2018 Gouty arthropathy 04/11/2021 History of cancer of right breast 06/24/2018 History of TIA (transient ischemic attack) 05/26/2023 HTN, goal below 130/80 06/24/2018 Primary osteoarthritis of both knees 12/16/2021 Spinal stenosis of lumbar region without neurogenic claudication 06/24/2018 Surgical History: Past Surgical History: Procedure Laterality Date BREAST BIOPSY Right 1999 BREAST BIOPSY Right 2010 mastectomy MASTECTOMY, MODIFIED RADICAL Right 2010 [place] ARTHROSCOPY KNEE DIAGNOSTIC W/WO SYNOVIAL BX SPX Right Social History: Social History Socioeconomic History Marital status: Spouse name: Not on file Number of children: Not on file Years of education: Not on file Highest education level: Not on file Occupational History Not on file Tobacco Use Smoking status: Never Smokeless tobacco: Never Vaping Use Vaping status: Never Used Substance and Sexual Activity Alcohol use: Yes Comment: once in awhile Drug use: No Sexual activity: Not on file Other Topics Concern Not on file Social History Narrative Not on file Social Determinants of Health Financial Resource Strain: Not on file Food Insecurity: No Food Insecurity (10/16/2020) Hunger Vital Sign Worried About Running Out of Food in the Last Year: Never true Ran Out of Food in the Last Year: Never true Transportation Needs: Not on file Social Connections: Unknown (07/27/2023) Social Connections How often do you feel lonely or isolated from those around you? (Adult - for ages 18 years and over): Not on file Housing Stability: Not on file Family History: Family History Problem Relation Name Age of Onset Diabetes Mother Hypertension Father Coronary Artery disease Father Diabetes Daughter Hypertension Daughter Breast Cancer No significant family history Filed Vitals: 08/23/23 1251 BP: 130/76 Pulse: 91 Resp: 16 Temp: 36.4 C (97.5 F) TempSrc: Tympanic SpO2: 96% Weight: 84.8 kg (187 lb) Consitutional: Alert and oriented. Appears of adequate age and nourishment. No acute distress. Cardiac: Regular rate and rhythm. No murmurs appreciated Pulmonary: Breath sounds clear and equal bilaterally. NEUROLOGIC EXAMINATION: MENTAL STATUS EXAMINATION: alert,oriented to time, place, person,normal recent memory,normal remotememory,normal attention span,normal concentration,normal language,normal fund of knowledge CRANIAL NERVE EXAMINATION: CN 2,3 - PERRLA,visual vela full,normal funduscopic examination CN 3, 4, 6 - Extra-ocular Movements Intact,no nystagmus CN 5 - Facial sensation intact and equal bilaterally CN 7 - no facial assymetry CN 8 - hearing grossly intact CN 9, 10, 12 - tongue and uvula midline,(+) gag reflex CN 11- good shoulder shrug DEEP TENDON REFLEXES: Biceps: Right: 2 = normal, Left: 2 = normal Triceps: Right: 2 = normal, Left: 2 = normal Brachioradialis: Right: 2 = normal, Left: 2 = normal Patellar/Knee: Right: 2 = normal, Left: 2 = normal Achilles/Ankle: Right: 2 = normal, Left: 2 = normal PATHOLOGIC REFLEXES: No pathological reflexes noted COORDINATION: normal to msggko-hzqq-gwpmku, mdej-uqbc-xksc, and rapid arm movements MOTOR STRENGTH: Upper extremities shoulder abduction - bilateral: 5/5 elbow extension - bilateral: 5/5 elbow flexion - bilateral: 5/5 wrist extension - bilateral: 5/5 wrist flexion - bilateral: 5/5 hand muscle - bilateral: 5/5 MOTOR STRENGTH: Lower extremities hip extension - bilateral: 5/5 hip flexion - bilateral: 5/5 knee extension - bilateral: 5/5 knee flexion - bilateral: 5/5 ankle extension - bilateral: 5/5 ankle flexion - bilateral: 5/5 SENSATION: sensation normal IMAGING STUDIES: EEG REPORT: At the onset of the EEG, the patient is awake. The background activity consist of 9 Hz, persistent, posteriorly dominant, moderate amplitude, symmetric and rhythmic activity that is reactive to eye opening. Anteriorly, it consist of a mixture of low voltage indeterminate activity and 15-25 Hz, persistent, low amplitude, symmetric and rhythmic activity. There is intermittent theta slowing in the left frontotemporal head region. Stepwise intermittent photic stimulation (1-21 Hz) does not induce any abnormalities. Drowsiness is characterized by low amplitude mixed frequency activity, roving eye movements, and decreased eye blinking and muscle artifact. IMPRESSION: This is an abnormal awake and drowsy routine EEG due to intermittent slowing in the left frontotemporal head region suggestive of underlying structural abnormality or neuronal dysfunction. No epileptiform discharges are seen. Davin Sung, DO ECHO, Complete (2D), transthoracic (05/21/23) The LV wall thickness is mildly increased (concentric). The left ventricular wall motion is normal. The qualitative LV ejection fraction is >70% (hyperdynamic). The left atrium is mildly enlarged. The left ventricular diastolic function is mildly abnormal (grade I). Mild aortic valve sclerosis is present. Aortic stenosis is absent. External EKG 8-15 Days (06/04/23) Sinus and sinus tachycardia, average rate 83 beats per minute. One 7 beat run of wide complex tachycardia noted. No atrial fibrillation or atrial flutter Review of prior Labs: Results for orders placed or performed in visit on 01/22/23 CHEMISTRY-OUTSIDE Result Value Ref Range Not all results display below - see scan for full detail CREATININE-OUTSIDE LAB 0.78 0.6 - 1.2 MG/DL EGFR-OUTSIDE LAB 68.4 ML/MIN POTASSIUM-OUTSIDE LAB 3.3 (A) 3.5 - 5.1 MMOL/L GLUCOSE-OUTSIDE LAB 79 70 - 99 MG/DL HOURS FASTING TRIGLYCERIDES-OUTSIDE LAB CHOLESTEROL-OUTSIDE LAB HDL-OUTSIDE LAB CHOL/HDL RATIO-OUTSIDE LAB LDL (CALCULATED)-OUTSIDE LAB LDL (DIRECT MEASURE)-OUTSIDE LAB HEMOGLOBIN, [id number] LAB PHOSPHORUS-OUTSIDE LAB PTH-OUTSIDE LAB MICROALBUMIN RATIO-OUTSIDE LAB PROTEIN, UA-OUTSIDE LAB NEGATIVE NEGATIVE HGB 13.5 12.0 - 16.0 G/DL Impression: 87 year old female with pmHx of HLD, HTN, CLL, hypothyroidism and prior TIAs presents today for a follup up for TIA with expressive aphasia in May 2023. Recommendations: Continue plavix as preventative treatment for TIAs. If any other episodes reoccur, the patient and her daughter were informed to seek immediate medical attention and follow up with neurology. If the patient does not experience any changes, she does not need to follow up, and can follow with primarycare. If the patient were to have recurrent neurologic symptoms it would be appropriate for her to have afollow-up MRI the brain CTA of the head and neck and if those things were noncontributory or normala repeat EEG would be appropriate. It is somewhat unusual that there is left-sided slowing on EEG in the absence of significant structural brain disease on that side. Certainly that finding could be a postictal phenomenon although the EEG was done months after her last episode. Oma Rodarte MD Candidate, Class of 2025 [facility] Associated attestation - Pilar Smith MD - 08/31/2023 11:35 AM EDT I attest that I have reviewed the student note and that the components of the history, the physicalexam, and the assessment and plan documented were performed in my presence with the student where Iverified the documentation and performed (or re-performed) the exam and medical decision making. Patient seen and examined history updated as appropriate as well as exam agree with management as above. Pilar Smith emptying documented in this encounter Nursing Notes * Vivi Escobar MED ASSIST - 08/23/2023 12:49 PM EDT Chief Complaint Patient presents with Return Neuro documented in this encounter Plan of Treatment Upcoming Encounters Date Type Department Care Team (Late st Contact Info) Description 10/14/2023 12:20 PM EDT Office Visit Nutrition & [facility] Management, [facility] [address] [place] [id number] Shefali Nolen PA-C [address] [place] [address] 01/25/2024 11:15 AM EST Office Visit Hematology/Oncology [facility] [address] [place] [address] Sergio Alejandra MD [address] [place] [address] Health Maintenance Due Date Last Done Comments [...] as of this encounter Visit Diagnoses Diagnosis History of TIA (transient ischemic attack)- Primary Transient ischemic attack (TIA), and cerebral infarction without residual deficits documented in this encounter Care Teams Mud Trucker Relationship Specialty Start Date End Date Omega Bragg MD [address] [place] [id number] PCP - General Family Medicine 06/24/18 documented as of this encounter
--- OUTSIDE RECORDS SUMMARY | 2023-12-31 13:08 | External Medical Summary | Summary of Care ---
Author Name Unknown Organization [facility] Address [address] [facility] [address] Phone [phone] Care Team Providers Care Talent Associate Name Role Phone Triston Bragg MD Primary Care Provider [phone] [phone] Reason for Visit * Reason Comments Follow Up Encounter Details Date Type Department Care Team (Late st Contact Info) Description 07/26/2023 12:00 PM EDT Office [facility] [place] 200 [facility] [place] [address] Suyapa Hirsch CRNP [address] [place] [address] CLL (chronic lymphocytic leukemia) ([facility])* Allergies Active Allergy Reactions Criticality Noted Date Comments Penicillin G 10/21/2018 documented as of this encounter (statuses as of 08/08/2023) Medications Medication Sig Dispensed Refills Start Date End Date Status Aspirin 81 MG Tablet Take 1 Tablet by mouth in the morning. Active Vitamin E 100 units Tablet Take 1 Tablet by mouth in the morning. Active Cholecalciferol (VITAMIN D) 1000 units Tablet Take 1 Tablet by mouth in the morning. Active Glucosamine-Chondroit -Vit C-Mn (GLUCOSAMINE 1500 COMPLEX) Capsule Take 1 [...] Active guaiFENesin-Codeine 100-10 MG/5ML Oral Syrup (Robitussin AC)Indications:Chroni c cough Take 5 mL by mouth every 4 hours as needed for Cough. 236 mL 1 03/26/2022 Active Lidocaine 4 % External Patch (Aspercreme) Place 1 Patch topically on the skin daily. 30 Patch 05/08/2022 Active Levothyroxine Sodium 75 MCG Oral Capsule (Tirosint) Take 75 mcg by mouth daily first thing in the morning. - 90 Capsule 08/26/2022 Active HYDROcodone-Acetamino phen 5-325 MG Oral TabletIndications:Rani pauline osteoarthritis of both knees Take 1 Tablet by mouth every 6 hours as needed for Pain, Severe. 30 Tablet 12/21/2022 Active Montelukast Sodium 10 MG Oral Tablet (Singulair) TAKE 1 TABLET BY MOUTH IN THE MORNING 90 Tablet 3 01/02/2023 Active Metamucil 28.3 % Oral Powder (Psyllium) Take by mouth. Act zana traMADol 25 MG OR Tablet Take 0.5 Tablets by mouth every 6 hours as needed. Active Clopidogrel Bisulfate 75 MG Oral Tablet (Plavix) Take one daily 14 Tablet 06/07/2023 Active Losartan Potassium 25 MG Oral Tablet (Cozaar) TAKE 1 TABLET BY MOUTH IN THE MORNING 90 Tablet 06/11/2023 Active Simvastatin 20 MG Oral Tablet (Zocor)Indications:Dy slipidemia TAKE 1 TABLET BY MOUTH IN THE MORNING 90 Tablet 06/11/2023 Active documented as of this encounter (statuses as of 08/08/2023) Active Problems Problem Noted Date Diagnosed Date [...] as of this encounter (statuses as of 08/08/2023) Resolved Problems Problem Noted Date Diagnosed Date Resolved Date Chronic cough 09/30/2021 12/16/2021 WENDY-inhibitor cough 05/13/2021 10/01/19 Arthritis of both knees 06/24/201809/2021 documented as of this encounter (statuses as of 08/08/2023) Immunizations No known immunizationsdocumented as of this [...] Sign Reading Time Taken Comments Blood Pressure 119/82 07/26/2023 12:07 PM EDT Pulse 93 07/26/2023 12:07 PM EDT Temperature 36.7 C (98 F) 07/26/2023 12:07 PM EDT Respiratory Rate 17 07/26/2023 12:07 PM EDT Oxygen Saturation 94% 07/26/2023 12:07 PM EDT Inhaled Oxygen Concentration - - Weight 86.2 kg (190 lb) 07/26/2023 12:07 PM EDT Height - - Body Mass Index 32.61 05/26/2023 3:24 PM EDT documented in this encounter Progress Notes * Suyapa Hirsch CRNP - 07/26/2023 12:00 PM EDT Images from the original note were not included. Hematology/Oncology Outpatient Clinic note [facility] [address] [facility] [place] [address] Name: Pauline Coon Date: 07/26/2023 CHIEF COMPLAINT: Pauline Coon is a 87 year old female here today for f/u visit today. Patient of Dr. Sergio Alejandra. From Patient chart confirmed with patient. From Dr. Sergio Alejandra note 01/21/23. HEMATOLOGY/ONCOLOGY DIAGNOSIS: B-cell CLL diagnosed in 2013. Has remained under observation since then. CURRENT TREATMENT: Observation. DIAGNOSTIC WORKUP: She says that she had a routine blood workup earlier in 2013, had lymphocytosis, diagnosed a case of B-cell CLL at that time. Peripheral blood for FISH was reported to be negative. She never receivedany treatment for the B-cell CLL since then. She was followed by Dr. Fausto Quintero. Last blood workup from the previous records done on 01/18/2018: -WBC 99514, H&H of 13.7/41, Platelet count of 232,000, ANC 8100 -Absolute lymphocyte count 33,500. She never had any repeated infections. She says that she has moved to [facility] somewhere in January 2018. Earlier she was in [place]. OTHER IMPORTANT HISTORY: - history of right breast cancer in 1987, S/P lumpectomy and radiation treatment done at [facility]. -she had another episode of right breast cancer in 2010, S/P mastectomy, she then completed 5 yearsof anastrozole in 2015. -DJD -Hypothyroidism next on-Hyperlipidemia -Hypertension. She is on WENDY inhibitor and hydrochlorothiazide combination HISTORY OF PRESENT ILLNESS: Pauline Coon is a 87 year old female with a history as outlined above. Currently here for f/u visit today. Patient feeling well today. Denies complaints or concerns. Denies drenching night sweats. Trying to watch what she eats. Denies any LAD. UTD on mammograms. Past Medical History: Diagnosis Date Acquired hypothyroidism 06/24/2018 Arthritis of both knees 06/24/2018 Breast cancer (HCC) 1998 Breast cancer (HCC) 2009 mastectomy Chronic cough 09/30/2021 CLL (chronic lymphocytic leukemia) (HCC) 06/24/2018 Dyslipidemia 06/24/2018 Gouty arthropathy 04/11/2021 History of cancer of right breast 06/24/2018 History of TIA (transient ischemic attack) 05/26/2023 HTN, goal below 130/80 06/24/2018 Primary osteoarthritis of both knees 12/16/2021 Spinal stenosis of lumbar region without neurogenic claudication 06/24/2018 Past Surgical History: Procedure Laterality Date BREAST BIOPSY Right 1998 BREAST BIOPSY Right 2010 mastectomy MASTECTOMY, MODIFIED RADICAL Right 2010 PA ARTHROSCOPY KNEE DIAGNOSTIC W/WO SYNOVIAL BX SPX Right Social History Socioeconomic History Marital status: Spouse [...] Never true Transportation Needs: Not on file Physical Activity: Not on file Stress: Not on file Social Connections: Not on file Intimate Partner Violence: Not on file Housing Stability: Not on file Review of patient's allergies indicates: Allergen Reactions Penicillin G Current Outpatient Medications Medication Sig Dispense Refill Aspirin 81 MG Tablet Take 1 Tablet by mouth in the morning. Vitamin E 100 units Tablet Take 1 Tablet by mouth in the morning. Cholecalciferol (VITAMIN D) 1000 units Tablet Take 1 Tablet by mouth in the morning. Rpqicygfrfl-Cjkfmmrhv-Lpz C-Mn (GLUCOSAMINE 1500 COMPLEX) Capsule Take 1 [...] Tablet (Plavix) Take one daily 14 Tablet 0 Losartan Potassium 25 MG Oral Tablet (Cozaar) TAKE 1 TABLET BY MOUTH IN THE MORNING 90 Tablet 0 Simvastatin 20 MG Oral Tablet (Zocor) TAKE 1 TABLET BY MOUTH IN THE MORNING 90 Tablet 0 No current facility-administered medications for this visit. REVIEW OF SYSTEMS: See HPI - otherwise negative OBJECTIVE: Filed Vitals: 07/26/23 1207 BP: 119/82 Pulse: 93 Resp: 17 Temp: 36.7 C (98 F) TempSrc: Tympanic SpO2: 94% Weight: 86.2 kg (190 lb) Wt Readings from Last 5 Encounters: 07/26/23 86.2 kg (190 lb) 06/04/23 88.8 kg (195 lb 12.8 oz) 05/26/23 87.1 kg (192 lb) 03/15/23 88 kg (194 lb) 01/21/23 87.1 kg (192 lb) PHYSICAL EXAM: ECOG: Performance Status 1 = 80-90% Symptoms but nearly ambulatory General Appearance: No acute distress Lymph Nodes: Normal - No palpable lymph nodes in the neck, supraclavicular or axillary areas Lungs/Thorax: Normal - Clear to auscultation Heart: Normal - Regular rate and rhythm, normal S1, S2, no appreciable murmurs Pulses/Extremities: Normal - 2+ throughout and symmetrical, no edema Abdomen: Normal - Soft, nontender, bowel sounds present, no appreciable hepatosplenomegaly, no palpable masses Neurologic: alert and oriented x 4, ambulates with walker LABS: IMPRESSION/PLAN: B-cell CLL Diagnosed in 2013. Has remained under observation since then. Patient feeling clinically well today and physical exam is unremarkable. Lab results reviewed: ALC stable with no cytopenias present. Denies b symptoms. No LAD or splenomegaly noted. Will continue observation with repeat lab work in six months. RTC in six months with provider with cbc/diff and cmp BELEN Aguila documented in this encounter Nursing Notes * Ange Barnhart MED ASSIST - 07/26/2023 12:12 PM EDT Patient identifed by name and birthdate Do you have any concerns about pain management for today's visit? Yes. Patient instructed to discuss pain concerns with provider during the visit today Living Will or Advance Directive for Health Care as noted on the problem list. [facility] is a way you can talk to your provider on line through e-mail. Would you like to sign up? I can activate it for you? ALREADY ACTIVE Filed Vitals: 07/26/23 1207 BP: 119/82 Pulse: 93 Resp: 17 Temp: 36.7 C (98 F) TempSrc: Tympanic SpO2: 94% Weight: 86.2 kg (190 lb) Patient was instructed to not get up on the exam table/exam chair until directed and assisted by their provider; patient is to remain seated in the chair/ wheelchair/ exam table/ exam chair for fall prevention and safety reasons. Patient is aware to have assistance to step down off exam table/exam chair with personnel. Patient voiced full comprehension of instructions. documented in this encounter Plan of Treatment Upcoming Encounters Date Type Department Care Team (Late st Contact Info) Description 08/10/2023 4:00 PM EDT Office Visit Family Practice [facility] [address] [place] [address] Triston Bragg MD [address] [place] [address] 08/23/2023 1:00 PM EDT Office Visit Neurology [facility] 200 [facility] [place] [place] [address] Pilar Smith MD [address] [place] [address] 10/14/2023 12:20 PM EDT Office Visit Nutrition & Weight Management, [facility] [address] [place] [address] Shefali Nolen PA-C [address] [place] [address] 01/25/2024 11:15 AM EST Office Visit Hematology/Oncology Janay Andrea [place] 200 [facility] [place] [id number] Sergio Alejandra MD 200 [facility] [place] [address] Scheduled Orders Name Type Priority Associated Diagnoses Orde r Schedule CBC WITH WBC DIFFERENTIAL Lab STAT CLL (chronic lymphocytic leukemia) (HCC) Every 6 Months for 2 Occurrences starting 08/08/2023 until 08/25/2024 COMPREHENSIVE METABOLIC PANEL Lab STAT CLL (chronic lymphocytic leukemia) (HCC) Every 6 Months for 2 Occurrences starting 08/08/2023 until 08/25/2024 Health Maintenance Due Date Last Done Comments DXA Scan 1935 COVID-19 Vaccine (#1) 11/11/1940 Albumin/Creatinine Ratio 11/11/1953 DTaP,Tdap,and Td Vaccines (1 - Tdap) 11/11/1954 Zoster Vaccines (1 of 2) 11/11/1954 Depression Screening 10/22/2019 10/21/2018 Influenza Vaccine (FLU shot) (Season Ended) 2023 11/17/2017, 11/06/2016, 11/06/2013, Additional history exists TSH 12/16/2023 12/15/2022, 09/2021, 11/04/2020, Additional history exists Pneumococcal Vaccine: 65+ Years Completed 03/05/2016, 06/11/2014 GARDASIL-HPV IMMUNIZATION SERIES Aged Out No longer eligible based on patient's age to complete this topic Hepatitis B Aged Out No longer eligi ble based on patient's age to complete this topic MENINGOCOCCAL (MENACTRA/MENVEO) Aged Out No longer eligible based on patient's age to complete this topic documented as of this encounter Medical Devices Not on filedocumented as of this encounter Visit Diagnoses Diagnosis CLL (chronic lymphocytic leukemia) (HCC)- Primary Chronic lymphoid leukemia, without mention of having achieved remission documented in this encounter Care Teams Talent Associate Relationship Specialty Start Date End Date Triston Bragg MD [address] [place] [address] PCP - General Family Medicine 06/24/18 documented as of this encounter
--- OUTSIDE RECORDS SUMMARY | 2023-12-31 13:08 | External Medical Summary | Summary of Care ---
Author Name Unknown Organization [facility] Address [address] [facility] [address] Phone [phone] Care Team Providers Care Mainframe Software Developer Name Role Phone Triston Bragg MD Primary Care Provider [phone] Reason for Visit * Reason Comments EEG Encounter Details Date Type Department Care Team (Late st Contact Info) Description 07/09/2023 10:30 AM EDT NeuroDiagnostic Study Neurophysiology [place] [facility] [address] [facility] [address] Sp, Neurophys Tech [address] [facility] [place] [address] Allergies Active Allergy Reactions Criticality Noted Date Comments Penicillin G 10/21/2018 documented as of this encounter (statuses as of 07/15/2023) Medications Medication Sig Dispensed Refills Start Date [...] Active HYDROcodone-Acetamino phen 5-325 MG Oral TabletIndications:Rani miriam osteoarthritis of both knees Take 1 Tablet [...] as of this encounter (statuses as of 07/15/2023) Active Problems Problem Noted Date Diagnosed Date [...] as of this encounter (statuses as of 07/15/2023) Resolved Problems Problem Noted Date Diagnosed Date Resolved Date Chronic cough 09/30/2021 12/16/2021 WENDY-inhibitor cough 05/13/2021 10/01/19 22 Arthritis of both knees 06/24/2018 11/0 09/2021 documented as of this encounter (statuses as of 07/15/2023) Immunizations No known immunizationsdocumented as of this [...] in the Last Year Never true 10/16/2020 Sex and Gender Information Value Date Recorded Sex Assigned at Not on file Gender Identity Not on file Sexual Orientation Not on file Job Start Date Occupation Industry Not on file Not on file Not on file documented as of this encounter Progress Notes * Davin Sung, - 07/15/2023 12:12 PM EDT ROUTINE EEG REPORT Name: Miriam Coon Date of study: 07/09/2023, 10:51-11:15 Age: [age] year old Outpatient Referring Physician: Pilar Smith MD TECHNICAL REMARKS: This is a technically satisfactory eighteen channel record employing 21 disc electrodes applied according to a measured international 10-20 electrode placement system. There were no significant technical difficulties. CLINICAL INFORMATION: AN 87 year old female with episodes of aphasia. EEG performed for evaluation of epileptiform activity. MEDICATIONS: Current Outpatient Medications Medication Sig Dispense Refill Aspirin 81 MG Tablet Take 1 Tablet by mouth in the morning. Vitamin E 100 units Tablet Take 1 Tablet by mouth in the morning. Cholecalciferol (VITAMIN D) 1000 units Tablet Take 1 Tablet by mouth in the morning. Qbshkftrgev-Ffdbhvisi-Ddp C-Mn (GLUCOSAMINE 1500 COMPLEX) Capsule Take 1 [...] No current facility-administered medications for this visit. REPORT: At the onset of the EEG, [...] dysfunction. No epileptiform discharges are seen. Davin Sung DO documented in this encounter Plan of Treatment Upcoming Encounters Date Type Department Care Team (Late st Contact Info) Description 07/26/2023 12:00 PM EDT Office Visit Hematology/Oncology [address] [place] [phone] Suyapa Hirsch CRNP [address] [place] [address] [place] [address] 08/10/2023 4:00 PM EDT Office Visit Family Practice [facility] 132 [facility] [place] [address] Triston Bragg MD [address] [place] [address] 08/23/2023 1:00 PM EDT Office Visit Neurology [facility] 200 [facility] [place] [address] Pilar Smith MD 200 [place] [address] 10/14/2023 12:20 PM EDT Office Visit Nutrition & Weight Management, [facility] [address] [place] [address] Shefali Nolen PA-C 132 [facility] [place] [address] Scheduled Orders Name Type Priority Associated Diagnoses Orde r Schedule EEG ROUTINE Procedures Routine Expressive aphasia Ordered: 06/04/2023 Health Maintenance Due Date Last Done Comments [...] as of this encounter Visit Diagnoses Diagnosis Expressive aphasia [R47.01]- Primary Aphasia documented in this encounter Care Teams Mainframe Software Developer Relationship Specialty Start Date End Date Triston Bragg MD [address] [place] [address] PCP - General Family Medicine 06/24/18 documented as of this encounter
--- OUTSIDE RECORDS SUMMARY | 2023-12-31 13:08 | External Medical Summary | Summary of Care ---
Author Name Unknown Organization [facility] Address [address] [facility] [address] Phone [phone] Care Team Providers Care Lead Applications Developer Name Role Phone Triston Bragg MD Primary Care Provider [phone] [phone] Reason for Visit * Reason Comments Return Neuro Encounter Details Date Type Department Care Team (Late st Contact Info) Description 08/23/2023 1:00 PM EDT Office Visit Neurology [facility] [place] [address] [facility] [place] [address] Pilar Smith MD [address] [place] [address] History of TIA (transient ischemic attack)* Allergies Active Allergy Reactions Criticality Noted Date Comments Penicillin G 10/21/2018 documented as of this encounter (statuses as of 08/23/2023) Medications Medication Sig Dispensed Refills Start Date [...] as of this encounter (statuses as of 08/23/2023) Active Problems Problem Noted Date Diagnosed Date [...] as of this encounter (statuses as of 08/23/2023) Resolved Problems Problem Noted Date Diagnosed Date Resolved Date Chronic cough 09/30/2021 12/16/2021 WENDY-inhibitor cough 05/13/2021 10/01/19 22 Arthritis of both knees 06/24/[address] 09/2021 documented as of this encounter (statuses as of 08/23/2023) Immunizations No known immunizationsdocumented as of this [...] 3:24 PM EDT documented in this encounter Nursing Notes * Vivi Escobar MED ASSIST - 08/23/2023 12:49 PM EDT Chief Complaint Patient presents with Return Neuro documented in this encounter Plan of Treatment Upcoming Encounters Date Type Department Care Team (Late st Contact Info) Description 10/14/2023 12:20 PM EDT Office Visit Nutrition & [facility], [facility] [place] [address] Shefali Nolen PA-C [address] [place] [address] 01/25/2024 11:15 AM EST Office Visit Hematology/Oncology Janay Andrea [place] [address] [place] [address] Sergio Alejandra MD [address] [place] [address] Health Maintenance Due Date Last Done Comments [...] deficits documented in this encounter Care Teams Lead Applications Developer Relationship Specialty Start Date End Date Triston Bragg MD [address] [place] [address] PCP - General Family Medicine 06/24/18 documented as of this encounter
--- OUTSIDE RECORDS SUMMARY | 2023-12-31 13:08 | External Medical Summary | Continuity of Care Document ---
Author Name Unknown Organization [place] [id number] Address [address] [place] [id number] Care Team Providers Care Seasonal Warehouse Associate Name Role Phone Triston Bragg Primary Care Physician [phone] [phone] Date(s): 11/23/23 - 11/23/23 [place] [address] [place] [address] [facility] [address] [place] [address] Encounter Diagnosis Osteoarthritis of knees, bilateral(Discharge Diagnosis) - 11/23/23 Discharge Disposition: Home or Self Care Attending Physician: MD Culp Philip J Referring Physician: MD Culp Philip J Allergies, Adverse Reactions, Alerts No Known Allergies Medications aspirin 81 mg oral delayed release [...] Start Date: 02/25/18 Status: Ordered Mental Status 11/23/23 Barriers to Learning one year None evide nt Mandatory Health Literacy Documentation Yes Health Literacy Communication Barriers N ever Primary Language Moldovan Problem List Condition Confirmation Course Effective Dates Status H ealth Status Informant Osteoarthritis of knees, bilateral Confirmed Active Erythema of lower extremity Confirmed Active Osteoarthritis, hand Confirmed Active Left knee DJD Confirmed Active Right knee DJD Confirmed Active Diagnosis Diagnosis Type Effective Dates Health Status Clinical Service Informant Osteoarthritis of knees, bilateral Discharge Diagnosis 11/23/23 Procedures Procedure Date Related Diagnosis Body Site Status Breast lumpectomy Complet ed Knee 1 Completed Mastectomy 2 Completed 1right knee meniscus repair 2right Social History Social History Type Response Smoking Status Never smoked cigaret aline Sex Female Sex Representation Female (finding) Patient Care team information Care Team Personnel Name: MD Mahsa, Triston Yoder Position: Referring DIRECT Member Role: Primary Care Provider Address: [address]
--- OUTSIDE RECORDS SUMMARY | 2023-12-31 13:08 | External Medical Summary | Continuity of Care Document ---
Author Name Unknown Organization [address] Address [address] [place] [address] [phone] Care Team Providers Care Reactor Technician Name Role Phone Triston Bragg Primary Care Physician [phone] [id number] Date(s): 11/09/23 - 11/09/23 [place] [id number] [facility] [address] [place], [place] [id number] Encounter Diagnosis Osteoarthritis of knees, bilateral(Discharge Diagnosis) - 11/09/23 Discharge Disposition: Home or Self Care Attending Physician: MD Culp Philip J Referring Physician: MD Culp Philip J Allergies, Adverse Reactions, Alerts No Known Allergies Assessment and Plan Extracted from: Title:Orthopaedics Office Visit Note Author:Jarad chakraborty MD, Philip J Date:11/09/23 1.Osteoarthritis of knees, bilateral Tanvi would like to proceed with the ultrasound-guided Hyalgan injections.The sites of injections were confirmed, and the patient was correctly identified. I was assisted with these procedures by Karla Vigil LPN. Left Knee: Verbal consent was obtained and a timeout procedure was performed per [facility] protocol.The suprapatellar pouch was localized over the anterolateral aspect of the left knee with ultrasound assistance.The skin of the anterolateral knee was then prepped in a sterile manner with ChloraPrep skin prep and sterile ultrasound gel was used for the procedure.Then using an in plane approach, a 22-gauge 1-1/2 inch needle was advanced towards the suprapatellar pouch and 2 cc of 1% lidocaine without epinephrine was injected along the needle path and into the suprapatellar pouch.The needle was kept in place,syringes werechanged,and 2 cc of Hyalgan were injected into the suprapatellar pouch.The needle was withdrawn the knee was cleaned and a Band-Aid was applied. Right knee: Verbal consent was obtained and a timeout procedure was performed per [facility] protocol.The suprapatellar pouch was localized over the anterolateral aspect of the right knee with ultrasound assistance.The skin of the anterolateral knee was then prepped in a sterile manner with ChloraPrep skin prep and sterile ultrasound gel was used for the procedure.Then using an in plane approach, a 22-gauge 1-1/2 inch needle was advanced towards the suprapatellar pouch and 2 cc of 1% lidocaine without epinephrine was injected along the needle path and into the suprapatellar pouch. The needle was kept in place,syringes werechanged, and 2 cc of Hyalgan were injected into the suprapatellar pouch.The needle was withdrawn the knee was cleaned and a Band-Aid was applied. Tanvi tolerated both injections well and was able to ambulate comfortably afterwards. Images of theevaluation and procedures aresaved in [facility]. She will follow up in 1 week for the 2nd of 5 Hyalgan injections. She should follow up sooner if she develops recurrent pain in either knee prior to that time, orif she notes any increased redness warmth or pain at the injection site.Her daughter was present for today's exam and is aware of the post-injection instructions. 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 Diagnosis Diagnosis Type Effective Dates Health Status Clinical Service Informant Osteoarthritis of knees, bilateral Discharge Diagnosis 11/09/23 Procedures Procedure Date Related Diagnosis Body Site Status Breast lumpectomy Complet ed Knee 1 Completed Mastectomy 2 Completed 1right knee meniscus repair 2right Vital Signs Most recent to oldest [Reference Range]: 1 Height 159.7 cm (11/09/23 1:33 PM) Patient Weight 86.2 kg (11/09/23 1:33 PM) Body Mass Index 33.8 kg/m2 (11/09/23 1:33 PM) Social History Social History Type Response Smoking Status Never smoked cigaret aline Sex Female Sex Representation Female (finding) Ortho Outpt Note * MD Culp Philip J: PERFORM Event Display: Ortho Outpt Note Authored Date: Primary Care Provider MD Mahsa, Triston Yoder Referring Provider MD Culp Philip J Chief Complaint Hyalgan inj 1 of 5 to each knee History of Present Illness Tanvi is [id number] female, denies any change in her knee pain since her last office visit.She has noticed returning pain in the bilateral knees over the past2-3 months. Denies and swelling or instability of the knees. She is seen today for her 1st of 5 Hyalgan injections. She tolerated previous series of injections well. Previous series of injections were done in April 2023. Physical Exam Vitals & Measurements HT:159.7cm WT:86.200kg(Dosing) WT:86.2kg BMI:33.8 General: Appears well. She is seen on an adjustable table. Ambulating with a cane. Accompanied by her daughter. Bilateral knees: there is no effusion, she is able to flex and extend the knees she is slightly tender over the medial joint line bilaterally. The knees are otherwise non tender to palpation. Assessment/Plan 1.Osteoarthritis of knees, bilateral Tanvi would like to proceed with the ultrasound-guided Hyalgan injections.The sites of injections were confirmed, and the patient was correctly identified. I was assisted with these procedures by Karla Vigil LPN. Left Knee: Verbal consent was obtained and a timeout procedure was performed per [facility] protocol.The suprapatellar pouch was localized over the anterolateral aspect of the left knee with ultrasound assistance.The skin of the anterolateral knee was then prepped in a sterile manner with ChloraPrep skin prep and sterile ultrasound gel was used for the procedure.Then using an in plane approach, a 22-gauge 1-1/2 inch needle was advanced towards the suprapatellar pouch and 2 cc of 1% lidocaine without epinephrine was injected along the needle path and into the suprapatellar pouch.The needle was kept in place,syringes werechanged,and 2 cc of Hyalgan were injected into the suprapatellar pouch.The needle was withdrawn the knee was cleaned and a Band-Aid was applied. Right knee: Verbal consent was obtained and a timeout procedure was performed per [facility] protocol.The suprapatellar pouch was localized over the anterolateral aspect of the right knee with ultrasound assistance.The skin of the anterolateral knee was then prepped in a sterile manner with ChloraPrep skin prep and sterile ultrasound gel was used for the procedure.Then using an in plane approach, a 22-gauge 1-1/2 inch needle was advanced towards the suprapatellar pouch and 2 cc of 1% lidocaine without epinephrine was injected along the needle path and into the suprapatellar pouch. The needle was kept in place,syringes werechanged, and 2 cc of Hyalgan were injected into the supra patellar pouch.The needle was withdrawn the knee was cleaned and a Band- Aid was applied. Tanvi tolerated both injections well and was able to ambulate comfortably afterwards. [facility] She will follow up in 1 week for the 2nd of 5 Hyalgan injections. She should follow up sooner if she develops recurrent pain in either knee prior to that time, orif she notes any increased redness warmth or pain at the injection site.Her daughter was present for today's exam and is aware ofthe post- injection instructions. Problem List/Past Medical History Ongoing Erythema of [...] due08/08/23and every 1year Due Adult COVID-19 Vaccination due11/09/23Unknown Frequency Adult Social Determinants of Health Screening due11/09/23Unknown Frequency Adult Tdap/Td Vaccine due11/09/23Unknown Frequency Lipid Screening due11/09/23Unknown Frequency Medicare Annual Wellness Visit due11/09/23and every 1year Pneumococcal Vaccine Older Adults due11/09/23One-time only Shingles Vaccine due11/09/23One-time only Satisfied(in the past 1 year) Satisfied Body Mass Index on11/09/23.Satisfied by BUNNY Vigil Bonita Electronic Signature on File CC: Triston Bragg MD [facility] [address] [place] [address] * Electronically Reviewed/Signed by: Cj Culp MD Author Signature Dt/Tm:11/09/2023 05:38 PM Division of Sports Medicine PJB Patient Care team information Care Team Personnel Name: MD Mahsa, Triston Yoder Position: Referring DIRECT Member Role: Primary Care Provider Address: [facility] [address] [place] [address] [place]
--- OUTSIDE RECORDS SUMMARY | 2023-12-31 13:08 | External Medical Summary | Summary of Care ---
Author Name Unknown Organization [facility] Address [address] [facility] [place] [address] Phone [phone] Care Team Providers Care Cold Roller Name Role Phone Omega Ugarte MD Primary Care Provider [phone] Reason for Visit * Reason Comments New Med Request Encounter Details Date Type Department Care Team (Late st Contact Info) Description 10/28/2023 Refill Family Practice [facility] [address] [place] [address] Omega Ugarte MD [address] [place] [address] Allergies Active Allergy Reactions Criticality Noted Date Comments Penicillin G 10/21/2018 documented as of this encounter (statuses as of 10/29/2023) Medications Medication Sig Dispensed Refills Start Date [...] as directed. 100 g 5 06/29/2018 Active Cetirizine HCl (ZYRTEC ALLERGY) 10 MG Capsule Take 1 Cap by mouth daily. 90 Cap 3 02/14/2019 Active Ondansetron HCl 4 MG Oral Tablet Take 1 Tablet (4 mg) by mouth every 6 hours as needed for Nausea. 30 Tablet 01/16/2022 Active guaiFENesin-Codeine 100-10 MG/5ML Oral Syrup (Robitussin AC)Indications:Freight Flagman jimmy cough Take 5 mL by mouth every 4 hours as needed for Cough. 236 mL 1 03/26/2022 Active Lidocaine 4 % External Patch (Aspercreme) Place 1 Patch topically on the skin daily. 30 Patch 05/08/2022 Active HYDROcodone-Acetami nophen 5-325 MG Oral TabletIndications:P [...] IN THE MORNING 90 Tablet 09/14/2023 Active Pantoprazole Sodium 40 MG Oral Tablet Delayed Release (Protonix) Take 1 Tablet by mouth in the morning. 90 Tablet 10/29/2023 Active Levothyroxine Sodium 75 MCG Oral Capsule (Tirosint) Take 75 mcg by mouth daily first thing in the morning. 90 Capsule 10/29/2023 Active hydroCHLOROthiazide 12.5 MG Oral Capsule Take 1 Cap by mouth daily. 90 Capsule 10/29/2023 Active hydroCHLOROthiazide (HYDRODIURIL) 12.5 MG Capsule Take 1 Cap by mouth daily. 30 Cap 5 12/07/2018 10/29/19 24 Discontinued Pantoprazole Sodium 40 MG Oral Tablet Delayed Release (Protonix) Take 1 Tablet by mouth in the morning. 10/29/19 24 Discontinued Levothyroxine Sodium 75 MCG Oral Capsule (Tirosint) Take 75 mcg by mouth daily first thing in the morning. - 90 Capsule 08/26/2022 10/29/19 24 Discontinued documented as of this encounter (statuses as of 10/29/2023) Active Problems Problem Noted Date Diagnosed Date [...] as of this encounter (statuses as of 10/29/2023) Resolved Problems Problem Noted Date Diagnosed Date Resolved Date Chronic cough 09/30/2021 12/16/2021 WENDY-inhibitor cough 05/13/2021 10/01/19 22 Arthritis of both knees 06/24/2018 11/0 09/2021 documented as of this encounter (statuses as of 10/29/2023) Immunizations No known immunizationsdocumented as of this [...] Telephone Encounter - Omega Ugarte MD - 10/29/2023 4:38 PM EDTSigned Prescriptions: Disp Refills Pantoprazole Sodium 40 MG Oral Tablet Marianne*90 Tab*0 Sig: Take 1 Tablet by mouth in the morning. Authorizing Provider: OMEGA UGARTE Levothyroxine Sodium 75 MCG Oral Capsule (*90 Cap*0 Sig: Take 75 mcg by mouth daily first thing in the morning. Authorizing Provider: OMEGA UGARTE hydroCHLOROthiazide 12.5 MG Oral Ca psule 90 Cap*0 Sig: Take 1 Cap by mouth daily. Authorizing Provider: OMEGA UGARTE * Telephone Encounter - Enriqueta Mansfield [employer] - 10/29/2023 4:32 PM EDTPending Prescriptions: Disp Refills Pantoprazole Sodium 40 MG Oral Tablet Marianne*90 Tab*0 Sig: Take 1 Tablet by mouth in the morning. Levothyroxine Sodium 75 MCG Oral Capsule (*90 Cap*0 Sig: Take 75 mcg by mouth daily first thing in the morning. hydroCHLOROthiazide 12.5 MG Oral Capsule 90 Cap*0 Sig: Take 1 Cap by mouth daily. * Telephone Encounter - Enriqueta Mansfield PHARM Tech - 10/29/2023 4:31 PM EDT Received message from [facility] regarding patient needing labs. Call Placed, Left message on voicemail advising of required labs Thank you, Enriqueta Mansfield, [facility] [place] [facility] 10/29/2023,4:31 PM * Telephone Encounter - Chencho Smith [facility] - 10/29/2023 4:14 PM EDTPending Prescriptions: Disp Refills Pantoprazole Sodium 40 MG Oral Tablet Marianne*90 Tab*0 Sig: Take 1 Tablet by mouth in the morning. Levothyroxine Sodium 75 MCG Oral Capsule (*90 Cap*0 Sig: Take 75 mcg by mouth daily first thing in the morning. hydroCHLOROthiazide 12.5 MG Oral Capsule 90 Cap*0 Sig: Take 1 Cap by mouth daily. * Telephone Encounter - Chencho Smith [facility] - 10/29/2023 4:11 PM EDT Attempt #3 Unable to authorize medication refills for pended medication(s) at this time. Per refill protocol patient should have routine labs on file within past year. Reviewed AMP report, Care Gaps/Health Maintenance, medications list, and for any routine labs typically ordered for this patient. Lab orders placed. Please contact patient to advise of labs ordered for blood draw AND URINE specimen (patient will have to be able to void to provide sample). Recommend patient to fast if able for labs. Patient may still have water and regular medications. Advise to obtain labs before requesting the next refill. After contacting patient, please forward request to Omega Ugarte MD. Thanks, Chencho Smith Pharm.D. Clinical Pharmacist [facility] [phone] 10/29/2023, 4:13 PM Did you pend patient's preferred pharmacy and medication before forwarding?yes Pharmacy: [facility] Pending Prescriptions: Disp Refills Pantoprazole Sodium 40 MG Oral Tablet Del*90 Tab*0 Sig: Take 1 Tablet by mouth in the morning. Levothyroxine Sodium 75 MCG Oral Capsule *90 Cap*0 Sig: Take 75 mcg by mouth daily first thing in the morning. hydroCHLOROthiazide 12.5 MG Oral Capsule *90 Cap*0 Sig: Take 1 Cap by mouth daily. Last Visit: 05/26/2023 (in office), 08/13/2021 (telemedicine) Next Visit: Visit date not found If no future appointments scheduled, and last appointment is greater than a year ago, please schedule patient for a follow-up appointment Last date the medication was ordered: historical; 08/26/2022; 12/07/2018 Is this request for a controlled substance?No [...] 01:54 PM ALT 12 06/24/2018 12:35 PM * Telephone Encounter - Jac Bhatti RPh - 10/29/2023 4:02 PM EDTPending Prescriptions: Disp Refills Pantoprazole Sodium 40 MG Oral Tablet Marianne*90 Tab*0 Sig: Take 1Tablet by mouth in the morning. Levothyroxine Sodium 75 MCG Oral Capsule (*90 Cap*0 Sig: Take 75 mcg by mouth daily first thing in the morning. hydroCHLOROthiazide 12.5 MG Oral Capsule 90 Cap*0 Sig: Take 1 Cap by mouth daily. ---- documented in this encounter Plan of Treatment Upcoming Encounters Date Type Department Care Team (Late st Contact Info) Description 01/25/2024 11:15 AM EST Office Visit Hematology/Oncology Janay [place] [address] [place] [address] Sergio Alejandra MD [address] [place] [address] Health Maintenance Due Date Last Done Comments [...] filedocumented as of this encounter Care Teams Cold Roller Relationship Specialty Start Date End Date Omega Ugarte MD [address] [place] [address] PCP - General Family Medicine 06/24/18 documented as of this encounter
--- OUTSIDE RECORDS SUMMARY | 2023-12-31 13:08 | External Medical Summary | Continuity of Care Document ---
Author Name Unknown Organization [address] Address [address] [place] [address] [id number] Care Team Providers Care Deicer Repairer Pneumatic Name Role Phone Triston Bragg Primary Care Physician [phone] [facility]counter [facility] [id number] Date(s): 11/16/23 - 11/16/23 [place] [id number] [facility] [address] [place], [place] [id number] Encounter Diagnosis Osteoarthritis of knees, bilateral(Discharge Diagnosis) - 11/16/23 Discharge Disposition: Home or Self Care Attending Physician: MD Culp Philip J Referring Physician: MD Culp Philip J Allergies, Adverse Reactions, Alerts No Known Allergies Assessment and Plan Extracted from: Title:Orthopaedics Office Visit Note Author:Jarad chakraborty MD, Philip J Date:11/16/23 1.Osteoarthritis of knees, bilateral Tanvi would like to proceed with the bilateralultrasound-guided Hyalgan injections.The sites of injections were confirmed, and the patient was correctly identified. I was assisted with these procedures by Karla Vigil LPN. Left knee: Verbal consent was obtained and a timeout procedure was performed per [facility] protocol.The suprapatellar pouch was localized over the anterolateral aspect of the left knee with ultrasound assistance.The skin of the anterolateral knee was then prepped in a sterile manner with ChloraPrep skin prep and sterile ultrasound gel was used for the procedure.Then using an in plane approach, a 25-gauge 1-1/2 inch needle was advanced towards the suprapatellar pouch and 2 cc of 1% lidocaine without epinephrine was injected along the needle path and into the suprapatellar pouch.The needle was kept in place, syringes were changed, then a 2cc Hyalgan syringe was attached and 2 cc of Hyalgan were injected into the suprapatellar pouch.The needle was withdrawn the knee was cleaned and a Band-Aid was applied. Right knee: Verbal consent was obtained and a timeout procedure was performed per [facility] protocol.The suprapatellar pouch was localized over the anterolateral aspect of the right knee with ultrasound assistance.The skin of the anterolateral knee was then prepped in a sterile manner with ChloraPrep skin prep and sterile ultrasound gel was used for the procedure.Then using an in plane approach, a 25-gauge 1-1/2 inch needle was advanced towards the suprapatellar pouch and 2 cc of 1% lidocaine without epinephrine was injected along the needle path and into the suprapatellar pouch.The needle was kept in place, syringes were changed, then a 2cc Hyalgan syringe was attached and 2 cc of Hyalgan were injected into the suprapatellar pouch.The needle was withdrawn the knee was cleaned and a Band-Aid was applied. Tanvi tolerated both injections well and was able to ambulate comfortably afterwards. [facility]cedures [facility]resaved [facility]. Tanvi will follow up in 1 week for the 3rd of 5 Hyalgan injections. She should follow up sooner if she develops recurrent pain in either knee prior to that time. She should follow-up sooner if she notes any increased redness warmth or pain at the injection site. 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 Diagnosis Diagnosis Type Effective Dates Health Status Clinical Service Informant Osteoarthritis of knees, bilateral Discharge Diagnosis 11/16/23 Procedures Procedure Date Related Diagnosis Body Site Status Breast lumpectomy Complet ed Knee 1 Completed Mastectomy 2 Completed 1right knee meniscus repair 2right Social History Social History Type Response Smoking Status Never smoked cigaret aline Sex Female Sex Representation Female (finding) Ortho Outpt Note * MD Culp Philip J: PERFORM Event Display: Ortho Outpt Note Authored Date: [id number] Primary Care Provider MD Bragg Anthony J Referring Provider MD Culp Philip J Chief Complaint US guided Hyalgan inj 2 of 5 to each knee History of Present Illness Tanvi is an 88-year-old female, she has noticed some improvement in her knee pain since her last office visit.She is seen today for her 2nd of 5 Hyalgan injections. She tolerated last week's injections well. Physical Exam General: Appears well. She is seen on an adjustable table. Ambulating with awalker, accompaniedby her daughter. Bilateral knees: there is no effusion, she is able to flex and extend the knees, she is slightly tender over the medial joint line bilaterally.There is bruising noted at the injection sites from last week. Assessment/Plan 1.Osteoarthritis of knees, bilateral Tanvi would like to proceed with the bilateralultrasound-guided Hyalgan injections.The sitesof injections were confirmed, and the patient was correctly identified. I was assisted with theseprocedures by Karla Vigil LPN. Left knee: Verbal consent was obtained and a timeout procedure was performed per [facility] protocol.The suprapatellar pouch was localized over the anterolateral aspect of the left knee with ultrasound assistance.The skin of the anterolateral knee was then prepped in a sterile manner with ChloraPrep skin prep and sterile ultrasound gel was used for the procedure.Then using an in planeapproach, a 25-gauge 1-1/2 inch needle was advanced towards the suprapatellar pouch and 2 cc of 1% lidocaine without epinephrine was injected along the needle path and into the suprapatellar pouch.The needle was kept in place, syringes were changed, then a 2cc Hyalgan syringe was attached and2 cc of Hyalgan were injected into the suprapatellar pouch.The needle was withdrawn the knee was cleaned and a Band-Aid was applied. Right knee: Verbal consent was obtained and a timeout procedure was performed per [facility] protocol.The suprapatellar pouch was localized over the anterolateral aspect of the right knee with ultrasound assistance.The skin of the anterolateral knee was then prepped in a sterile manner with ChloraPrep skin prep and sterile ultrasound gel was used for the procedure.Then using an in plane approach, a 25-gauge 1-1/2 inch needle was advanced towards the suprapatellar pouch and 2 cc of 1%lidocaine without epinephrine was injected along the needle path and into the suprapatellar pouch.The needle was kept in place, syringes were changed, then a 2cc Hyalgan syringe was attached and 2 cc of Hyalgan were injected into the suprapatellar pouch.The needle was withdrawn the knee was cleaned and a Band-Aid was applied. Tanvi tolerated both injections well and was able to ambulate comfortably afterwards. [facility]vi will follow up in 1 week for the 3rd of 5 Hyalgan injections. She should follow up sooner if she develops recurrent pain in either knee prior to that time. She should follow-up sooner if she notes any increased redness warmth or pain at the injection site. Problem List/Past Medical History Ongoing Erythema of [...] due08/08/23and every 1year Due Adult COVID-19 Vaccination due11/16/23Unknown Frequency Adult Social Determinants of Health Screening due11/16/23Unknown Frequency Adult Tdap/Td Vaccine due11/16/23Unknown Frequency Lipid Screening due11/16/23Unknown Frequency Medicare Annual Wellness Visit due11/16/23and every 1year Pneumococcal Vaccine Older Adults due11/16/23One-time only Shingles Vaccine due11/16/23One-time only Due In Future Body Mass Index not due until11/09/24and every 366day Satisfied(in the past 1 year) Satisfied Body Mass Index on11/09/23.Satisfied by BUNNY Vigil Bonita Electronic Signature on File Electronically Reviewed/Signed by: Cj Culp MD Author Signature Dt/Tm:11/16/2023 01:37 PM Division of Sports Medicine PJB Patient Care team information Care Team Personnel Name: MD Mahsa, Triston Yoder Position: Referring DIRECT Member Role: Primary Care Provider Address: [address] [place] [address]
[2023-12-31] MEDS: ACETAMINOPHEN 1,000 MG/100 ML VIAL IV SCH (16:43)
[2023-12-31] MEDS: PIPERACILLIN/TAZOBACTAM 4.5 GM/100 ML BAG IV SCH (17:00)
--- OUTSIDE RECORDS SUMMARY | 2023-12-31 22:42 | External Medical Summary | Summary of Care ---
Author Name Unknown Organization [facility] Address [address] [place] [address] Phone [phone] Care Team Providers Care Director Security Management Name Role Phone Omega Ugarte MD Primary Care Provider [phone] Reason for Visit * Reason Comments eRx-Medication Refill Encounter Details Date Type Department Care Team (Late st Contact Info) Description 12/29/2023 Refill Family Practice [facility] [address] [place] [address] Omega Ugarte MD [address] [place] [address] Dyslipidemia Allergies Active Allergy Reactions Criticality Noted Date Comments Penicillin G 10/21/2018 documented as of this encounter (statuses as of 12/30/2023) Medications Vitamin E 100 units Tablet Take [...] daily 30 Tablet 3 09/02/19 24 Active Levothyroxine Sodium 75 MCG Oral [...] THE MORNING 90 Tablet 12/25/19 24 Active Diclofenac Sodium 1 % External Gel (Voltaren) Apply topically to affected area 2 times a day. Apply to knees 150 g 1 12/27/19 24 Active Losartan Potassium 25 MG Oral Tablet (Cozaar) TAKE 1 TABLET BY MOUTH IN THE MORNING 90 Tablet 3 12/30/19 24 Active Simvastatin 20 MG Oral Tablet (Zocor)Indication s:Dyslipidemia TAKE 1 TABLET BY MOUTH IN THE MORNING 90 Tablet 3 12/30/19 24 Active Losartan Potassium 25 MG Oral Tablet (Cozaar) TAKE 1 TABLET BY MOUTH IN THE MORNING 90 Tablet 09/14/19 24 024 Discontinued Simvastatin 20 MG Oral Tablet (Zocor)Indication s:Dyslipidemia TAKE 1 TABLET BY MOUTH IN THE MORNING 90 Tablet 09/14/19 24 024 Discontinued documented as of this encounter (statuses as of 12/30/2023) Active Problems Problem Noted Date Diagnosed Date [...] as of this encounter (statuses as of 12/30/2023) Resolved Problems Problem Noted Date Diagnosed Date Resolved Date Chronic cough 09/30/2021 12/16/2021 WENDY-inhibitor cough 05/13/2021 10/01/19 22 Arthritis of both knees 06/24/2018 11/0 09/2021 documented as of this encounter (statuses as of 12/30/2023) Immunizations No known immunizationsdocumented as of this [...] encounter Miscellaneous Notes * Telephone Encounter - Shannan Atkinson RPh - 12/30/2023 11:28 AM EST Signed Prescriptions: Disp Refills Losartan Potassium 25 MG Oral Tablet (Coza*90 Tab*3 Sig: TAKE 1 TABLET BY MOUTH IN THE MORNINGAuthorizing Provider: OMEGA UGARTE User: SHANNAN ATKINSON Simvastatin 20 MG Oral Tablet (Zocor) 90 Tab*3 Sig: TAKE 1 TABLET BY MOUTH IN THE MORNINGAuthorizing Provider: OMEGA UGARTE User: SHANNAN ATKINSON documented in this encounter Plan of Treatment Upcoming Encounters Date Type Department Care Team (Late st Contact Info) Description 01/25/2024 11:30 AM EST Office [facility] [place] [address] [address] Suyapa Hirsch CRNP [address] [place] [address] Health Maintenance Due Date Last Done Comments DXA Scan 1935 COVID-19 Vaccine (#1) 11/11/1940 Albumin/Creatinine Ratio 11/11/1953 DTap/Tdap Vaccines (1 - Tdap) 11/11/1954 Zoster Vaccines (1 of 2) 11[birth year]11/1954 Adult Wellness Visit 11/11/2001 Depression Screening 10/22/2019 10/21/2018 Influenza Vaccine (FLU shot) (#1) 2023 11/17/2017, 11/06/2016, 11/06/2013, Additional history exists TSH 12/26/2024 12/27/2023, 1108/2022, 12/16/2021, Additional history exists Pneumococcal Vaccine: 65+ Years [...] hyperlipidemia documented in this encounter Care Teams Director Security Management Relationship Specialty Start Date End Date Omega Ugarte MD [address] [place] [address] PCP - General Family Medicine 06/24/18 documented as of this encounter
[2024-01-01 08:14] LABS: Hematocrit (blood only) 37.2 % (37.0-47.0); Hemoglobin 12.1 g/dl (12.0-16.0); Mean Corpuscular Hemoglobin 25.2 pg (25.0-34.0); Mean Corpuscular Hgb Conc 32.5 g/dL (32.0-36.0); Mean Corpuscular Volume 77.5 fL (80.0-100.0); Mean Platelet Volume 11.4 fL (9.4-12.4); Platelet Count 233 K/uL (130-400); RDW Coefficient of Variation 15.5 % (11.5-14.5); RDW Standard Deviation 43.7 fL (36.4-46.3); White Blood Count 41.64 K/ul (4.8-10.8)
[2024-01-01 08:26] LABS: Albumin Globulin Ratio 1.1 (0.9-2); Albumin Level 3.5 gm/dl (3.4-5.0); BUN Creatinine Ratio 12.3 (10-20); Bilirubin,Total 1.3 mg/dl (0.2-1.0); Calcium 8.8 mg/dl (8.6-10.3); Creatinine Clr Calc Pharmacy 54.5 ml/min; Globulin 3.3 gm/dl (2.5-4.0); Potassium 3.2 mmol/L (3.5-5.1); Total Protein 6.8 gm/dl (6.0-8.3)
[2024-01-01 08:38] LABS: INR 1.1 (0.9-1.1); Prothrombin Time 11.4 Seconds (9.0-12.0)
--- NOTE | 2024-01-01 09:26 | Hospitalist Progress Note ---
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 She was ultimately found to have acute cholecystitis on admitting imaging. Acute Cholecystitis: Admitting CTAP revealed a distended gallbladder with gallbladder wall thickening and pericholecystic infiltration representing moderate to severe acute cholecystitis. Liver US also displayed a distended gallbladder with numerous gallstones, moderate gallbladder wall thickening and trace pericholecystic fluid suggesting acute cholecystitis. 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 General surgery was consulted and recommended transfer to [facility] for stent placement. Patient being transferred to [facility] tomorrow (01/01). Accepting physician at [facility] is Dr. Kaz Rodriguez [[facility] will call tomorrow with the bed assignment]. Continue to hold home Plavix, NPO at midnight. Goal to hold Plavix x 5 days. She was started on IV cefoxitin in the ED; now on day #2 of IV Zosyn - continue. Mild transaminitis today (AST 101, ALT 84 & Alk Phos 148). Hypokalemia: K+ 3.2 today -> 4 bags of IV 10mEq KCl ordered for repletion. Continue to monitor her electrolytes and manage PRN. Constipation: No BM since admission. Patient agreeable to begin a scheduled bowel regimen. Will start Colace BID, continue PRN Miralax. Also has a PRN Dulcolax suppository on board. B-cell CLL & History of Right Breast Cancer: [facility]] on a routine outpatient basis. B-cell CLL was diagnosed in 2013 -> She has remained under observation since then. WBC baseline ~50-60k per chart review (stable). History of R breast CA in 1987 s/p lumpectomy + radiation therapy at [facility]. Recurrence of R breast CA in 2010 now s/p R mastectomy + 5yr course of anastrozole. Hypothyroidism: TSH 4.53 on 12/27/2023, can continue home levothyroxine. History of Prior TIAs: Follows with [facility] [Dr. Pilar Smith]. Home Plavix currently on hold as per above. Per previous provider documentation, appears patient has some mental "fogginess" when she is overwhelmed; no official diagnosis of dementia. Spinal Stenosis, Ambulatory Dysfunction: Currently living in a hotel with her daughter and granddaughter with elevator access. PT/OT were consulted -> Anticipate patient to return to prior living arrangement upon discharge. Other Chronic Medical Conditions: HTN/HLD --> Can continue home losartan, HCTZ and simvastatin. DVT Prophylaxis: SCDs/TEDs in anticipation of operation as per above. Code Status: FULL CODE PCP: Triston Bragg MD Disposition: Patient to be transferred to [facility] tomorrow for stent placement 2/2 acute cholecystitis, cystic duct stones. Patient seen in collaboration with Dr. Thompson. Please see addendum. I spent a total of 55 minutes coordinating, documenting, and providing care for this patient excluding time spent in the performance of separately billed services. This included personally reviewing all current laboratories and imaging studies, medical reconciliation, outpatient chart review and discussion with specialists. This chart was completed in part utilizing Speech Voice Recognition Software. Grammatical errors, random word insertions, pronoun errors, and incomplete sentences are an occasional consequence of this system due to software limitations, ambient noise, and hardware issues. Any formal questions or concerns about the content, text, or information contained within the body of this dictation should be directly addressed to the provider for clarification. Admission and Anticipated Discharge Date Admission Date: December 30, 2023 Supervising Physician Co-Signing Physician Notes Agree with plans as detailed by Yesi Vogt PA-C Subjective Patient seen and examined at bedside this morning. She reports right upper quadrant pain with movement that radiates across to her left upper quadrant intermittently. She denies any pain at rest. No nausea or vomiting. She denies any chest pain or shortness of breath. She was drinking some apple juice this morning without any issue. She understands that she is going to be transferred to [facility] for stent placement; I had her write this down on a paper she can keep at bedside (which she says will help her keep track of things) although she was very alert and oriented this morning. She remembered that she has acute cholecystitis. She has not yet had a bowel movement since being admitted therefore we discussed adding on a gentle scheduled bowel regimen - which she was agreeable to. Review of Systems Review of Systems: At least ten systems reviewed and negative, except as noted in the subjective section. Physical Exam Physical Exam: General: Elderly F, NAD, sitting up in bed, very pleasant with some mild memory changes, conversing appropriately. A+Ox3 this morning. HEENT: Normocephalic, atraumatic. Conjunctivae normal, anicteric sclerae. External ear and nose normal, oropharynx normal. Respiratory: Normal respiratory effort, lungs clear to auscultation, no wheeze/rales/rhonchi. No accessory muscle use. Cardiovascular: Regular rate, rhythm, normal peripheral pulses, no BLE edema. Vessels: No JVD. Abdomen/GI: Normal bowel sounds, soft, nondistended but TTP in RUQ. Extremities/Musculoskeletal: No cyanosis or clubbing, able to actively move all extremities. Neurologic: No overt focal deficits, CN's II-XI not formally tested but appear grossly intact bilaterally. Skin: No rashes, normal color, warm/dry. Results & Data Results & Data Vital Signs (Past 12 Hours) Vital Signs Temp Pulse Pulse Pulse Resp BP Pulse Ox 01/01/24 08:12 36.6 C 86 16 122/78 91 01/01/24 07:17 86 01/01/24 03:45 128/77 01/01/24 03:38 36.3 C L 82 20 177/91 H 92 01/01/24 01:33 01/01/24 00:47 36.4 C L 89 20 150/88 H 92 12/31/23 22:35 85 O2 Del Method 01/01/24 08:12 Room Air 01/01/24 07:17 01/01/24 03:45 01/01/24 03:38 Room Air 01/01/24 01:33 Room Air 01/01/24 00:47 Room Air 12/31/23 22:35 Laboratory Results Short CBC 01/01/24 Range/Units 07:45 WBC 41.64 H* (4.8-10.8) K/ul Hgb 12.1 (12.0-16.0) g/dl Hct 37.2 (37.0-47.0) % Plt Count 233 (130-400) K/uL BMP 01/01/24 07:45 Sodium 141 Potassium 3.2 L Chloride 105 Carbon Dioxide 26 BUN 9 Creatinine 0.73 Glucose 120 H Calcium 8.8 Liver Function 01/01/24 Range/Units 07:45 Total Bilirubin 1.3 H (0.2-1.0) mg/dl AST 101 H (13-39) U/L ALT 84 H (7-52) U/L Alkaline Phosphatase 148 H (34-104) U/L Albumin 3.5 (3.4-5.0) gm/dl
[2024-01-01] MEDS ORDERED: bisacodyL 10 MG SUPP PR PRN (09:59)
--- NOTE | 2024-01-01 10:02 | Surgery Progress Note ---
Date of Service January 01, 2024 Assessment & Plan (1) Cholecystitis: Plan: pt awaiting transfer to [facility], for axios stent placement with GI Recommend NPO the night prior to discharge to [facility] ordered suppository PRN for constipation Admission and Anticipated Discharge Date Admission Date: December 30, 2023 Subjective pt sitting in bed concerned she hasn't moved her bowels Physical Exam Gastrointestinal (Abdomen): Percussion/Palpation: + abdomen tender and abdomen soft Psychiatric: Orientation: alert and oriented x 3 Results & Data Vital Signs (Past 12 Hours) Vital Signs Temp Pulse Pulse Pulse Resp BP Pulse Ox 01/01/24 08:12 97.9 F 86 16 122/78 91 01/01/24 07:17 86 01/01/24 03:45 128/77 01/01/24 03:38 97.3 F L 82 20 177/91 H 92 01/01/24 01:33 01/01/24 00:47 97.5 F L 89 20 150/88 H 92 12/31/23 22:35 85 O2 Del Method 01/01/24 08:12 Room Air 01/01/24 07:17 01/01/24 03:45 01/01/24 03:38 Room Air 01/01/24 01:33 Room Air 01/01/24 00:47 Room Air 12/31/23 22:35 PG Care Time/CCT Total # of Minutes Spent Total Time Spent with Patient: Total time spent is greater than 50% in coordination of care (as documented) at patient's floor/unit and/or counseling patient: Coding Level of Care Code 26584 SUB INP/OBS CARE 125MIN Diagnoses Cholecystitis K81.9
--- NOTE | 2024-01-01 12:14 | Electrocardiogram Report ---
Test Reason : Blood Pressure : */* mmHG Vent. Rate : 102 BPM Atrial Rate : 102 BPM P-R Int : 176 ms QRS Dur : 86 ms QT Int : 350 ms P-R-T Axes : 51 -47 68 degrees QTcB Int : 456 ms Sinus tachycardia with sinus arrhythmia Left anterior fascicular block Nonspecific T wave abnormality Abnormal ECG When compared with ECG of 22-May-2023 15:01, Nonspecific T wave abnormality now evident in Anterior leads Confirmed by Klaus Dillard ([id number]) on 01/01/2024 12:14:18 PM Referred By: REFERRED SELF Confirmed By: Klaus Dillard
[2024-01-01] MEDS: DOCUSATE SODIUM 100 MG CAP PO SCH (12:52)
[2024-01-01] MEDS: POTASSIUM CHLORIDE / WTR 10 MEQ/100 ML PLCT IV SCH (12:52)
[2024-01-02 07:53] LABS: Hematocrit (blood only) 39.3 % (37.0-47.0); Hemoglobin 12.3 g/dl (12.0-16.0); Mean Corpuscular Hemoglobin 24.6 pg (25.0-34.0); Mean Corpuscular Hgb Conc 31.3 g/dL (32.0-36.0); Mean Corpuscular Volume 78.8 fL (80.0-100.0); Mean Platelet Volume 10.8 fL (9.4-12.4); Platelet Count 233 K/uL (130-400); RDW Coefficient of Variation 15.4 % (11.5-14.5); RDW Standard Deviation 43.7 fL (36.4-46.3); Red Blood Count 4.99 M/uL (4.20-5.40); White Blood Count 40.89 K/ul (4.8-10.8)
[2024-01-02 08:03] LABS: Calcium 8.8 mg/dl (8.6-10.3); Potassium 3.5 mmol/L (3.5-5.1)
[2024-01-02 08:09] LABS: BUN Creatinine Ratio 11.1 (10-20); Creatinine Clr Calc Pharmacy 55.6 ml/min
[2024-01-02 09:11] LABS: Albumin Level 3.7 gm/dl (3.4-5.0); Bilirubin Direct 0.4 mg/dl (0-0.2); Bilirubin,Total 1.1 mg/dl (0.2-1.0)
[2024-01-02 09:17] LABS: Total Protein 6.9 gm/dl (6.0-8.3)
--- NOTE | 2024-01-02 12:43 | Discharge Summary ---
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 She was ultimately found to have acute cholecystitis on admitting imaging. Acute Cholecystitis: Admitting CTAP revealed a distended gallbladder with gallbladder wall thickening and pericholecystic infiltration representing moderate to severe acute cholecystitis. Liver US also displayed a distended gallbladder with numerous gallstones, moderate gallbladder wall thickening and trace pericholecystic fluid suggesting acute cholecystitis. 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 General surgery was consulted and recommended transfer to [facility] for stent placement. Patient being transferred to [facility] today. Accepting physician at [facility] is Dr. Kaz Rodriguez. Continue to hold home Plavix, NPO at midnight. Goal to hold Plavix x 5 days. She was started on IV cefoxitin in the ED; now on day #3 of IV Zosyn. Mild transaminitis on today's labs (AST 103, ALT 111, Alk Phos 191). B-cell CLL & History of Right Breast Cancer: Follows with [facility] [Dr. Sergio Alejandra] on a routine outpatient basis. B-cell CLL was diagnosed in 2013 -> She has remained under observation since then. WBC baseline ~50-60k per chart review. History of R breast CA in 1987 s/p lumpectomy + radiation therapy at [facility] [place]. Recurrence of R breast CA in 2010 now s/p R mastectomy + 5yr course of anastrozole. Hypothyroidism: TSH 4.53 on 12/27/2023, can continue home levothyroxine. History of Prior TIAs: Follows with [facility] [Dr. Pilar Smith]. Home Plavix currently on hold as per above. Per previous provider documentation, appears patient has some mental "fogginess" when she is overwhelmed; no official diagnosis of dementia. Spinal Stenosis, Ambulatory Dysfunction: Currently living in a hotel with her daughter and granddaughter with elevator access. PT/OT were consulted -> Anticipate patient to return to prior living arrangement upon discharge. Other Chronic Medical Conditions: HTN/HLD --> Can continue home losartan, HCTZ and simvastatin. Code Status: FULL CODE PCP: Triston Bragg MD Disposition: Patient is being transferred to [facility] to undergo stent placement as per above. Patient's daughter, Lashawn, updated and agreeable with this plan. Patient seen in collaboration with Dr. Thompson. Please see addendum. I spent a total of 55 minutes coordinating, documenting, and providing care for this patient excluding time spent in the performance of separately billed s ervices. This included personally reviewing all current laboratories and imaging studies, medical reconciliation, outpatient chart review and discussion with specialists. This chart was completed in part utilizing Speech Voice Recognition Software. Grammatical errors, random word insertions, pronoun errors, and incomplete sentences are an occasional consequence of this system due to software limi tations, ambient noise, and hardware issues. Any formal questions or concerns about the content, text, or information contained within the body of this dictation should be directly addressed to the provider for clarification. Notes For Next Care Provider Patient's home Plavix is currently on hold; DVT prophylaxis with SCDs/TEDs. She is on day #3 of IV Zosyn. She has require IV KCl supplementation. Mild transaminitis on today's labs (AST 103, ALT 111, Alk Phos 191). Chronic leukocytosis 2/2 B-cell CLL (monitored by [facility]). Vital signs have remained stable. Medication Changes From Visit Home Plavix on hold as per above. No other home medications changes were made during this visit. Admission HPI Per Admitting Provider This is a 88-year-old female with PMHx of CLL, history of right breast cancer, hypothyroidism, HTN, HLD, GERD, spinal stenosis, ambulatory dysfunction and anxiety who presents to the hospital with onset of right-sided flank pain on and off over the past 1 to 2 months. She complains of recent constipation and that is why she initially presented. Patient has been out of her house and living in a hotel for the past few months, not eating normal types of food, and came into the ER with worsening abdominal/right-sided flank pain. Last time she ate was coffee and small muffin this morning around 8 AM. Pt denies fever, chills, worsening abdominal pain, distension, admits to burping often. She has pain in the RUQ with pressure but does not bother her while is just sitting in bed. Her daughter is with her at bedside and supports the history. CT abdomen pelvis is reviewed showing a distended gallbladder with gallbladder wall thickening and pericholecystic infiltration. Representing moderate to severe acute cholecystitis. Given gallbladder wall irregularity, developing gangrenous cholecystitis cannot be excluded. Subtle hypointensity within the adjacent liver, probably reflecting edema, however underlying neoplastic etiology is also within the deaf. Mild dilation of intrahepatic bile duct with mass effect upon the CBD within the pascale hepatitis. Prominent wall enhancement of central bile ducts. Extensive colonic diverticulosis, no acute diverticuliti s. WBC of 66.46 with a left shift with neutrophil count 1.53, her baseline WBC is around 60K with history of CLL. Admission Exam Per Admitting Provider Constitutional: No fever, sweats or chills Eyes: No diplopia, no worsening or blurred vision ENT: normal hearing, no trouble swallowing Respiratory: No cough, sputum, dyspnea at rest or on exertion Cardiovascular: No chest pain, tightness or palpitations Abdomen: + RUQ pain, no nausea, vomiting, diarrhea, + as per HPI with constipation Musculoskeletal: No joint pain, calf pain, swelling Neurologic: No weakness, numbness/tingling, or balance problems Psychiatric: No anxiety or depression Skin: No rash or itch Discharge Exam General: Elderly F, NAD, sitting up in bed, mild memory changes but converses appropriately, daughter at bedside. A+Ox3. HEENT: Normocephalic, atraumatic. Conjunctivae normal, anicteric sclerae. External ear and nose normal, oropharynx normal. Respiratory: Normal respiratory effort, lungs clear to auscultation, no wheeze/ rales/rhonchi. No accessory muscle use. Cardiovascular: Regular rate, rhythm, normal peripheral pulses, no BLE edema. Vessels: No JVD. Abdomen/GI: Normal bowel sounds, soft, nondistended but TTP in RUQ. Extremities/Musculoskeletal: No cyanosis or clubbing, able to actively move all extremities. Neurologic: No overt focal deficits, CN's II-XI not formally tested but appear grossly intact bilaterally. Skin: No rashes, normal color, warm/dry. Updated Medication List Medication Instructions Recorded Confirmed Type cholecalciferol (vitamin D3) 50 25 mcg PO DAILY 12/08/22 12/30/23 History mcg (2,000 unit) capsule (Vitamin D3) glucosamine sulfate 500 mg tablet 500 mg PO BID 12/08/22 12/30/23 History (Glucosamine) hydrochlorothiazide 12.5 mg capsule 12.5 mg PO QAM 12/08/22 12/30/23 History loratadine 10 mg tablet (Claritin) 10 mg PO DAILY 12/08/22 12/30/23 History losartan 25 mg tablet 25 mg PO QAM 12/08/22 12/30/23 History pantoprazole 40 mg tablet,delayed 40 mg PO QAM 12/08/22 12/30/23 History release psyllium husk 3.4 gram/5.4 gram 1 tbsp PO DAILY 12/08/22 12/30/23 History oral powder (Metamucil) simvastatin 20 mg tablet 20 mg PO QAM 12/08/22 12/30/23 History vitamin E 268 mg (400 unit) capsule 268 mg PO DAILY 12/08/22 12/30/23 History montelukast 10 mg tablet 10 mg PO QAM 05/22/23 12/30/23 History cetirizine 10 mg capsule 10 mg PO DAILY 12/30/23 12/30/23 History clopidogrel 75 mg tablet 75 mg PO DAILY 12/30/23 12/30/23 History diclofenac sodium 1 % topical gel 2 g topical BID 12/30/23 12/30/23 History hydrocodone 5 mg-acetaminophen 325 1 tab PO Q6H PRN Pain (Scale Score 12/30/23 12/30/23 History mg tablet 4-6) levothyroxine 75 mcg tablet 75 mcg PO DAILY 12/30/23 12/30/23 History turmeric root extract 500 mg 500 mg PO DAILY 12/30/23 12/30/23 History capsule Hospital Stay Data Consultations 12/30/23 13:57 Consult General Surgery Routine ED Decision to Admit Stat 12/30/23 18:19 Consult General Surgery Routine Diagnostic Imagining Performed 12/30/23 11:19 CT abd pelvis IV con only Stat 12/30/23 14:01 US RUQ [US liver] Stat 12/30/23 15:16 MR MRCP Stat Pending Results Patient Have Any Pending Studies at Discharge: No Discharge Instructions Given to Patient (Per Discharging Provider) Chuckie Carpenter presented to [facility] on 12/30/2023 with complaints of right flank pain and were found to have acute cholecystitis (inflammation of the gallbladder) on admitting imaging. You were subsequently started on IV antibiotic therapy and seen by the general surgery team whom recommended that you are transferred to [facility] for further evaluation and treatment. Therefore, you are being transferred to [facility] today to undergo this procedure. The accepting physician who will see you upon arrival at [facility] is Dr. Kaz Rodriguez. Your plavix is on hold for now for procedure Total Time Total Time Spent Total Time Spent (In Minutes): 55 Supervising Physician Co-Signing Physician Notes Patient seen and examined Agree with plans as detailed by Yesi Vogt PA-C
== END 2024-01-02 14:40 | disposition short-term general hospital (02) | DRG 445 ==
LOC: ED 10:57 → SUATTDRO 14:09 → EDINP 14:09 → 2N 17:28